=== PATIENT | female | born 1955 | race Caucasian/White ===

== ENCOUNTER 2016-06-14 06:55 | Day surgery (SDC) | payer BC ==
[~2016-06-14] VITALS: Ht 162.6 cm; Wt 98.0 kg
[~2016-06-14 06:55] MED LIST: ACET-2723 PO; AMLO10TA2 PO; AMLO5TAB2 PO; ASCO10007 PO; BISO1TAB10 PO; BUPR-51 PO; CHOL200026 PO; HYDR-4246 PO; LOSA100T44 PO; MELO15TA12 PO; ONDA4TAB4 PO; POTA10TA14 PO; UBID100C10 PO; VIT1CAPS21 PO; VITA1CAP64 PO
--- OUTSIDE RECORDS SUMMARY | 2016-06-14 06:58 | XMS REPORT | Referral Summary ---
Author Author [facility], Family Medicine Organization [facility] Address Unknown Phone Unavailable Care Team Providers Care Seed Buyer Name Role Phone Roxanna Monique Primary Care Physician [phone] Encounter [facility] Date(s): 06/20/14 - 06/20/14 [facility], [address] [place] [id number]- Discharge Disposition: 01-Home or Self Care Attending Physician: Jonathan Monique MD Admitting Physician: Jonathan Monique MD Vital Signs Most recent to 1 oldest [Reference Range]: Temperature Tympanic 36.5 degC [36.6-38.1 degC] *LOW* (06/20/14 2:30 PM) Peripheral Pulse 68 bpm Rate [60-100 bpm] (06/20/14 2:30 PM) Blood Pressure 150/92 mmHg [90-140/60-90 mmHg] *HI* (06/20/14 2:30 PM) Problem List Condition Effective Dates Status Health Status Informant Allergic Active rhinitis(Confirmed) Acute Active anxiety(Confirmed) Benign essential Active hypertension(Confirm ed) Cervical disc Active degeneration(Confirm ed) Cervical disc Active herniation(Confirmed ) Cervical Active radiculitis(Confirme d) Cervical spinal Active stenosis(Confirmed) Cervical Active spondylosis(Confirme d) Depression(Confirmed Active ) Hayfever(Confirmed) Active Hypertension(Confirm Active ed) Hypertriglyceridemia Active (Confirmed) Hypokalemia(Confirme Active d) Knee pain(Confirmed) Active Well adult Active exam(Confirmed) Multinodular Active thyroid(Confirmed) Neck pain(Confirmed) Active Obesity(Confirmed) Active Hip Active osteoarthritis(Confi rmed) Osteoarthritis of Active left knee(Confirmed) Overweight(Confirmed Active ) Left knee Active sprain(Confirmed) Sprain of medial Active collateral ligament of left knee(Confirmed) Left leg Active swelling(Confirmed) Heart murmur, Active systolic(Confirmed) Acute torn Active meniscus(Confirmed) Tenderness of left Active calf(Confirmed) Tobacco Active patient user(Confirmed) Tubular adenoma of 2012 Active colon(Confirmed) Uterine Active fibroids(Confirmed) Need for hepatitis A Active vaccination(Confirme d) Allergies, Adverse Reactions, Alerts No Known Medication Allergies Medications albuterol CFC free 90 mcg/inh inhalation aerosol 2 puffs, Inhalation, QID, as needed for wheezing, # 18 g, 1 Refill(s), Pharmacy : [id number] Start Date: 12/26/14 Status: Ordered amLODIPine 10 mg oral tablet 1 tabs, Oral, Daily, # 90 tabs, 3 Refill(s), Pharmacy: [id number], 1 tabs Oral Daily,x90 days Start Date: 06/20/14 Stop Date: 06/15/15 Status: Ordered amoxicillin-clavulanate 875 mg-125 mg oral tablet 1 tabs, Oral, q12hr, X 10 days, # 20 tabs, 0 Refill(s), Pharmacy: [id number] Start Date: 12/26/14 Stop Date: 01/05/15 Status: Ordered bisoprolol-hydrochlorothiazide 2.5 mg-6.25 mg oral tablet 2 tabs, Oral, Daily, # 180 tabs, 3 Refill(s), Pharmacy: [facility] [id number] Start Date: 06/20/14 Stop Date: 06/15/15 Status: Ordered Klor-Con 10 oral tablet, extended release 1 tabs, Oral, Daily, # 90 tabs, 3 Refill(s), Pharmacy: [facility] [id number], 1 tabs Oral Daily,x90 days Start Date: 06/20/14 Stop Date: 06/15/15 Status: Ordered losartan 100 mg oral tablet 1 tabs, Oral, Daily, X 90 days, # 90 tabs, 3 Refill(s), Pharmacy: [facility] [id number], 1 tabs Oral Daily,x90 days Start Date: 06/20/14 Stop Date: 06/15/15 Status: Ordered Ocuvite PreserVision 1 tabs, Oral, Daily, 0 Refill(s) Start Date: 08/03/14 Status: Ordered traMADol 50 mg oral tablet 25 mg 0.5 tabs, Oral, BID, for knee pain, 0 Refill(s) Start Date: 08/03/14 Status: Ordered Tussionex PennKinetic 10 mg-8 mg/5 mL oral suspension, extended release 5 mL, Oral, Bedtime (once a day), # 120 mL, 0 Refill(s) Start Date: 12/26/14 Stop Date: 01/14/15 Status: Ordered Tylenol Extra Strength 500 mg oral tablet 2 tabs, Oral, TID, as needed for pain, # 120 tabs, 0 Refill(s) Start Date: 02/17/14 Status: Ordered ubiquinone 200 mg oral capsule Oral, Daily, 0 Refill(s) Start Date: 05/20/14 Status: Ordered Unisom 25 mg oral tablet 0.5 tabs, Oral, Bedtime (once a day), as needed for sleep, 0 Refill(s) Start Date: 11/11/13 Status: Ordered Vitamin B Complex oral capsule 1 caps, Oral, Daily Start Date: 10/20/13 Status: Ordered Vitamin C 1000 mg oral tablet 1 tabs, Oral, Daily Start Date: 10/20/13 Status: Ordered Vitamin D3 1000 intl units oral tablet 2 tabs, Oral, Daily Start Date: 10/20/13 Status: Ordered Results No data available for this section Immunizations Vaccine Date Refusal Reason diphtheria/pertussis, acel/tetanus ped 08/30/11 diphtheria/pertussis, whole cell/tetanus 03/12/02 hepatitis A adult vaccine 08/03/14 hepatitis B adult vaccine 08/30/11 Procedures Procedure Date Related Diagnosis Body Site Arthroscopy and biopsy of knee1 07/11/14 Colonoscopy 05/01/11 c-scope 2011 [facility] BSO - Total abdominal hysterectomy and 09/2009 bilateral salpingo-oophorectomy Appendectomy 2009 Arthroscopy of RIGHT knee 07/2006 Cholecystectomy 2004 1left knee meiscectomy and debridement Social History Social History Type Response Smoking Status Former smoker; Type: Cigarettes1 1quit smoking in 1999 Assessment and Plan Extracted from: Title: Ambulatory Patient Education Author: Jonathan Monique MD Date: 06/20 Family Medicine Combined Knee Ligament Sprain Combined knee ligament sprain is a tear of more than one of the major ligaments of the knee. The four knee ligaments are the anterior cruciate ligament (ACL), posterior cruciate ligament (PCL), medial collateral ligament (MCL) and lateral collateral ligament (LCL). Ligaments connect bones. They often cross a joint to hold the bones together. The ligaments of the knee keep the thigh bone (femur ) and shinbone (tibia ) in alignment. These ligaments allow the joint to move within a certain range of motion. Movement outside this range causes a ligament strain. Injury to multiple ligaments at the same time results in difficulty playing sports and in daily living. The most common multiple knee ligament injury involves the ACL and MCL. SYMPTOMS A "popping" sound heard or felt at the time of injury. Inability to continue activity after injury. Inflammation of the knee within 6 hours after injury. Possibly, deformity of the knee. Inability to straighten the knee. Feeling of the knee giving way or buckling. Sometimes, locking of the knee, if the joint cartilage (meniscus ) is injured. Rarely, numbness, weakness, paralysis, discoloration, or coldness, due to nerve or blood vessel injury. CAUSES Spraining of multiple ligaments occurs when a force is placed on the ligaments that exceeds their strength. This is often caused by a direct hit (trauma ). It may also be caused by a non-contact injury (hyperextending the knee while twisting it). RISK INCREASES WITH: Contact sports (football, rugby, lacrosse). Sports that involve pivoting, jumping, cutting, or changing direction (basketball, gymnastics, soccer, volleyball). Sports on uneven ground (cross-country running, soccer). Poor strength and/or flexibility. Improper fitted or padded equipment. PREVENTION Warm up and stretch properly before activity. Maintain physical fitness: Thigh, leg, and knee flexibility. Muscle strength and endurance. Learn and use proper exercise technique. Wear proper and well fitting equipment (correct length of cleats for surface). PROGNOSIS Without treatment, the knee will continue to give way and become vulnerable to recurring injury. Recurring injury can happen during athletics or daily living. If the injury includes damage to a nerve or artery, the chance of a poor outcome increases. Surgery is often needed to regain stability of the knee. RELATED COMPLICATIONS Frequently recurring symptoms, including: Knee giving way. Joint instability. Inflammation. Injury to the joint cartilage (meniscus ). This may result in locking and/ or swelling of the knee. Injury to joint (articular ) cartilage of the thigh bone or shinbone. This may result in arthritis of the knee. Injury to other ligaments of the knee. Knee stiffness (loss of knee motion). Permanent injury to nerves (numbness, weakness, or paralysis) or arteries. Removal (amputation ) of the leg, due to nerve or artery injury. TREATMENT Treatment first involves medicine and ice, to reduce pain and inflammation. Crutches may be advised, to decrease pain while walking. The knee may be restrained. Rehabilitation focuses on reducing swelling, regaining range of motion, and regaining muscle control and strength. It may also include receiving proper use training, wearing a brace, and education. (Avoid sports that involve pivoting, cutting, changing direction, jumping and landing). Surgery often offers the best chance for full recovery. Surgery from combined ACL/MCL injury involves replacement (reconstruction ) of the ACL. This also allows for MCL healing. Despite surgery, some athletes may never return to their prior level of competition. The ability to return to sports depends on the related injuries and demands of the sport. MEDICATION If pain medicine is needed, nonsteroidal anti-inflammatory medicines ( aspirin and ibuprofen), or other minor pain relievers (acetaminophen), are often advised. Do not take pain medicine for 7 days before surgery. Stronger pain relievers may be prescribed. Use only as directed and only as much as you need. Contact your caregiver immediately if any bleeding, stomach upset, or signs of an allergic reaction occur. COLD THERAPY Cold treatment (icing ) should be applied for 10 to 15 minutes every 2 to 3 hours for inflammation and pain, and immediately after activity that aggravates your symptoms. Use ice packs or an ice massage. SEEK MEDICAL CARE IF: Symptoms get worse or do not improve in 6 weeks, despite treatment. After injury or surgery, any of the following occur: Pain, numbness, coldness, or a blue, torres, or dark color occurs in the foot or toenails. Increased pain, swelling, redness, drainage of fluids, or bleeding in the affected area. Signs of infection (headache, muscle aches, dizziness, or a general ill feeling with fever). New, unexplained symptoms develop. (Drugs used in treatment may produce side effects .) Document Released: 01/27/2006 Document Revised: 04/20/2012 Document Reviewed: [facility] Patient Information 2014 Campus Sponsorship [facility]. No follow up information was provided. Extracted from: Title: knee injury, hypertension Author: Jonathan Monique MD Date: 06/20/14 Impression and Plan Diagnosis Benign essential hypertension (ICD9 401.1, Working, Medical). Left knee sprain (ICD9 844.9, Working, Medical). Plan: Try to avoid ibuprofen, which is raising your BP. , Raise your Bisoprolol to 2 tabs daily, for better control of your BP. , Wear your brace with the metal stays when walking, in order to help prevent further injury to your medial collateral ligament., See me in 4-6 weeks for re-evaluation of your BP and physical. . Orders Orders (Selected) Outpatient Orders Ordered Office Visit Level 5 Est 32915: Discontinued Office Visit Level 4 Est 12005: Prescriptions Prescribed Klor-Con 10 oral tablet, extended release: 1 tabs, Oral, Daily, for 90 days, 90 tabs, 3 Refill(s) amLODIPine 10 mg oral tablet: 1 tabs, Oral, Daily, for 90 days, 90 tabs, 3 Refill(s) bisoprolol-hydrochlorothiazide 2.5 mg-6.25 mg oral tablet: 2 tabs, Oral, Daily, for 90 days, 180 tabs, 3 Refill(s) losartan 100 mg oral tablet: 1 tabs, Oral, Daily, for 90 days, 90 tabs, 3 Refill (s). Dx/Order Association Plan: Diagnosis: Benign essential hypertension Comment: Ordered: Office Visit Level 5 Est 75411; 06/20/14 17:00:00 CDT, Left knee sprain | Benign essential hypertension Discontinued: Office Visit Level 4 Est 18742; 06/20/14 15:15:00 CDT, Left knee sprain | Benign essential hypertension Diagnosis: Left knee sprain Comment: Ordered: Office Visit Level 5 Est 55715; 06/20/14 17:00:00 CDT, Left knee sprain | Benign essential hypertension Discontinued: Office Visit Level 4 Est 04812; 06/20/14 15:15:00 CDT, Left knee sprain | Benign essential hypertension Additional Orders: Comment: Ordered: Klor-Con 10 oral tablet, extended release,1 tabs, Oral, Daily, # 90 tabs, 3 Refill(s), Pharmacy: [facility] [id number], 1 tabs Oral Daily,x90 days Ordered: amLODIPine 10 mg oral tablet,1 tabs, Oral, Daily, # 90 tabs, 3 Refill(s), Pharmacy: [facility] [id number], 1 tabs Oral Daily,x90 days Ordered: bisoprolol-hydrochlorothiazide 2.5 mg-6.25 mg oral tablet, 2 tabs, Oral, Daily, # 180 tabs, 3 Refill(s), Pharmacy: [facility] [id number] Ordered: losartan 100 mg oral tablet,1 tabs, Oral, Daily, X 90 days , # 90 tabs, 3 Refill(s), Pharmacy: [facility] [id number], 1 tabs Oral Daily,x90 days End of Orders .
--- OUTSIDE RECORDS SUMMARY | 2016-06-14 06:58 | XMS REPORT | Continuity of Care Document ---
Author Author Jonathan Monique MD Organization [facility] Address [address] [place] [address] Phone Care Team Providers Care Terrazzo Journeyman Name Role Phone Jonathan Monique PP Unavailable Payers Payer name Insurance type Covered constitution party ID Authorization(s) Unknown Problems Condition Effective Dates (start - stop) Clinical Status Well adult exam - *Stable Hypertension - *Chronic Osteoarthritis, knee - *Chronic Thyroid nodule - *Chronic Renal insufficiency - *Acute Maxillary sinusitis - *Acute BPPV (benign paroxysmal positional vertigo) - *Acute Hypertension - *Chronic Thyroid nodule - *Acute Hypertension - *Chronic Osteoarthritis of right hip - Improved Hypertension, benign - *Chronic Plantar fasciitis of left foot - *Chronic Hypokalemia - *Acute Nontoxic uninodular goiter - *Chronic Hypertension, Benign - *Chronic PRSNL HST COLONIC POLYPS - UTERINE LEIOMYOMA NOS - OVERWEIGHT - BENIGN HYPERTENSION - ALLERGIC RHINITIS NOS - DYSPLASIA OF CERVIX NOS - CERVICAL SPONDYLOSIS - CERVICAL DISC DISPLACMNT - CERVICAL DISC DEGEN - CERVICAL SPINAL STENOSIS - CERVICALGIA - BRACHIAL NEURITIS NOS - ABN GLANDULAR PAP SMEAR - Family History Family Member Diagnosis Age At Onset Status Brother (Unknown) Alive and well (Unknown) Paternal grandfather (Unknown) CAD Yes Mother () Cancer - lung 75 Yes Sister (Unknown) Alive and well (Unknown) Father () Pulmonary fibrosis 78 Yes Paternal aunt (Alive) Cancer - breast Yes 2 paternal great unc (Unknown) Premature CAD Yes Father (Unknown) CAD Yes Maternal grandfather (Unknown) Cancer - colon Yes Brother (Unknown) CAD Yes Mother (Unknown) Diabetes Yes Social History Social History Element Description Quantity Unknown Allergies, Adverse Reactions, Alerts Substance Reaction Severity Status Unknown Medications Medication Instructions Dosage Effective Dates (start - stop) Status Cataflam 50 mg tablet take 1 tablet (50MG) by oral route 2 times every day 50 MG - No Longer Active estradiol 0.05 mg/24 hr weekly transdermal patch apply 1 patch by transdermal route every week 0 - No Longer Active ondansetron HCl 4 mg tablet take 1 Tablet (4MG) by oral route every 4 - 6 hours as needed for nausea 4 MG - Active estradiol 0.05 mg/24 hr semiweekly transdermal patch apply 1 patch by transdermal route every week 0 - Active gabapentin 600 mg tablet Take 0.5 - 1 tablets by mouth at bedtime. 2013 - No Longer Active losartan 100 mg-hydrochlorothiazide 25 mg tablet take 1 tablet by oral route every day 0 - No Longer Active amoxicillin 875 mg-potassium clavulanate 125 mg tablet take 1 tablet by oral route every 12 hours 0 - No Longer Active gabapentin 600 mg tablet Take 0.5 - 1 tablets by mouth at bedtime. 2013 - No Longer Active Vitamin C 1,000 mg tablet take 1 by Oral route every day 0 - Active Vitamin B Complex tablet take 1 Tablet by Oral route every day 0 2011 - Active Vitamin D3 1,000 unit capsule take 1 Tablet by Oral route every day 0 - Active losartan 100 mg tablet take 1 Tablet (100MG) by oral route every morning 100 MG - Active gabapentin 600 mg tablet Take 0.5 - 1 tablets by mouth as nneeded. 2013 - Active amlodipine 5 mg tablet take 1 tablet (5MG) by oral route every day 5 MG - Active Immunizations Vaccine Date Status Comments DTaP completed - Completed reason: other provider DTP completed - Completed reason: other provider Results Test Name Date and Time Measure Units Reference Range Abnormal Flag Comments Unknown Vital Signs Date / Time: Height Weight Pulse Rate Blood Pressure Temperature /07:35:00 64.25 in 204.00 lbs 64 /min 150/90 mm[Hg] 97.6 F Procedures Procedure Date Unknown Encounters Encounter Location Date Patient Visit [facility] Patient Visit [facility] Patient Visit [facility] Patient Visit [facility] Patient Visit [facility] Patient Visit [facility] Patient Visit [facility] Patient Visit [facility] Advance Directives Directive Effective Date Unknown
--- OUTSIDE RECORDS SUMMARY | 2016-06-14 06:59 | XMS REPORT | Continuity of Care Document ---
Author Author Maria Elena BREAUX, [facility] Address [address] [place] [address] Phone Care Team Providers Care Bushing And Broach Operator Name Role Phone Jonathan Monique PP Unavailable Payers Payer name Insurance type Covered libertarian ID Authorization(s) Unknown Problems Condition Effective Dates (start - stop) Clinical Status Bronchitis, Acute - *Acute Sinusitis, Acute - *Acute Hypertension, Benign - *Chronic Hot flashes due to surgical menopause - *Controlled BPPV (benign paroxysmal positional vertigo) - *Acute Hypertension - *Chronic Thyroid nodule - *Acute Hypertension - *Chronic Osteoarthritis of right hip - Improved Hypertension, benign - *Chronic Plantar fasciitis of left foot - *Chronic Hypokalemia - *Acute Thyroid nodule - *Chronic Hypertension, benign - *Chronic Osteoarthritis of both hips - *Chronic Nontoxic uninodular goiter - *Chronic Hypertension, Benign - *Chronic Well adult exam - *Stable Hypertension - *Chronic Osteoarthritis, knee - *Chronic Thyroid nodule - *Chronic Renal insufficiency - *Acute Maxillary sinusitis - *Acute PRSNL HST COLONIC POLYPS - UTERINE LEIOMYOMA [...] Dosage Effective Dates (start - stop) Status amlodipine 10 mg tablet take 1 tablet (10MG) by oral route every day 10 MG - Active estradiol 0.05 mg/24 hr weekly transdermal patch apply 1 patch by transdermal route every week - Active Diane 0.05 mg/24 hr transdermal patch apply 1 patch by transdermal route every week 0 - No Longer Active Tussionex Pennkinetic ER 8 mg-10 mg/5 mL suspension,extended release take 5 milliliter (1 tsp) by oral route at bedtime as needed for cough 2013 - No Longer Active albuterol sulfate HFA 90 mcg/actuation aerosol inhaler inhale 1-2 puffs by inhalation route every 4 - 6 hours as needed - No Longer Active Vitamin C 1,000 [...] by mouth as nneeded. 2013 - Active coenzyme Q10 50 mg capsule take one capsules daily - Active Immunizations Vaccine Date Status Comments DTaP completed - Completed reason: other provider DTP completed - Completed reason: other provider Results Test Name Date and Time Measure Units Reference Range Abnormal Flag Comments Unknown Vital Signs Date / Time: Height Weight Pulse Rate Blood Pressure Temperature /15:31:00 64.25 in 203.00 lbs 80 /min 160/98 mm[Hg] 98.8 F Procedures Procedure Date Unknown Encounters Encounter Location Date Patient Visit [facility] Patient Visit [facility] Patient Visit [facility] Patient Visit [facility] [place] Patient Visit [facility] [place] Patient Visit [facility] Patient Visit [facility] Patient Visit [facility] [place] Patient Visit [facility] [place] Patient Visit [facility] Advance Directives Directive Effective Date Unknown
--- OUTSIDE RECORDS SUMMARY | 2016-06-14 06:59 | XMS REPORT | Referral Summary ---
Author Author [facility], Family Medicine Organization [facility] Address Unknown Phone Unavailable Care Team Providers Care Area Mechanic Name Role Phone Roxanna Monique Primary Care Physician [phone] Encounter VC Date(s): 01/30/15 - 01/30/15 [facility], [address] [place] [id number]- Discharge Disposition: 01-Home or Self Care Attending Physician: Jonathan Monique MD Admitting Physician: Jonathan Monique MD Vital Signs Most recent to 1 oldest [Reference Range]: Temperature Tympanic 36.6 degC [36.6-38.1 degC] (01/30/15 10:09 AM) Peripheral Pulse 66 bpm Rate [60-100 bpm] (01/30/15 10:09 AM) Blood Pressure 126/80 mmHg [90-140/60-90 mmHg] (01/30/15 10:09 AM) SpO2 98 % (01/30/15 10:09 AM) Problem List Condition Effective Dates Status Health [...] # 18 g, 1 Refill(s), Pharmacy : [facility] [id number] Start Date: 12/26/14 Status: Ordered amLODIPine 10 mg oral tablet 1 tabs, Oral, Daily, # 90 tabs, 3 Refill(s), Pharmacy: [facility] [id number], 1 tabs Oral Daily,x90 days Start Date: 06/20/14 Stop Date: 06/15/15 Status: Ordered bisoprolol-hydrochlorothiazide 2.5 mg-6.25 mg oral tablet 2 tabs, Oral, Daily, # 180 tabs, 3 Refill(s), Pharmacy: [facility] Start Date: 01/30/15 Stop Date: 01/25/16 Status: Ordered Klor-Con 10 oral tablet, extended release 1 tabs, Oral, Daily, # 90 tabs, 3 Refill(s), Pharmacy: [facility] [id number], 1 tabs Oral Daily,x90 days Start Date: 06/20/14 Stop Date: 06/15/15 Status: Ordered losartan 100 mg oral tablet 1 tabs, Oral, Daily, X 90 days, # 90 tabs, 3 Refill(s), Pharmacy: [facility] [id number], 1 tabs Oral Daily,x90 days Start Date: 06/20/14 Stop Date: 06/15/15 Status: Ordered Applegate 7.5 mg-325 mg oral tablet 1 tabs, Oral, q6hr, as needed for pain, # 30 tabs, 0 Refill(s) Start Date: 01/30/15 Stop Date: 02/11/15 Status: Ordered Ocuvite PreserVision 1 tabs, Oral, Daily, 0 Refill(s) Start Date: 08/03/14 Status: Ordered traMADol 50 mg oral tablet 25 mg 0.5 tabs, Oral, BID, for knee pain, 0 Refill(s) Start Date: 08/03/14 Status: Ordered Tylenol Extra Strength 500 mg [...] whole cell/tetanus 03/12/02 hepatitis A adult vaccine 01/30/15 hepatitis A adult vaccine 08/03/14 hepatitis B adult vaccine 08/30/11 Procedures Procedure Date Related Diagnosis Body Site Arthroscopy and biopsy of knee1 07/11/14 Colonoscopy 05/01/11 c-scope 2011 [facility] BSO - Total abdominal hysterectomy and 09/2009 bilateral salpingo-oophorectomy Appendectomy 2009 Arthroscopy of RIGHT knee 07/2006 Cholecystectomy 2004 1left knee meiscectomy and debridement Social History Social History Type Response Smoking Status Former smoker; Type: Cigarettes1 1quit smoking in 1999 Assessment and Plan Extracted from: Title: Ambulatory Patient Education Author: Jonathan Monique MD Date: Family Medicine Osteoarthritis Osteoarthritis is a disease that causes soreness and inflammation of a joint. It occurs when the cartilage at the affected joint wears down. Cartilage acts as a cushion, covering the ends of bones where they meet to form a joint. Osteoarthritis is the most common form of arthritis. It often occurs in older people. The joints affected most often by this condition include those in the: Ends of the fingers. Thumbs. Neck. Lower back. Knees. Hips. CAUSES Over time, the cartilage that covers the ends of bones begins to wear away. This causes bone to rub on bone, producing pain and stiffness in the affected joints. RISK FACTORS Certain factors can increase your chances of having osteoarthritis, including: Older age. Excessive body weight. Overuse of joints. Previous joint injury. SIGNS AND SYMPTOMS Pain, swelling, and stiffness in the joint. Over time, the joint may lose its normal shape. Small deposits of bone (osteophytes) may grow on the edges of the joint. Bits of bone or cartilage can break off and float inside the joint space. This may cause more pain and damage. DIAGNOSIS Your health care provider will do a physical exam and ask about your symptoms. Various tests may be ordered, such as: X-rays of the affected joint. An MRI scan. Blood tests to rule out other types of arthritis. Joint fluid tests. This involves using a needle to draw fluid from the joint and examining the fluid under a microscope. TREATMENT Goals of treatment are to control pain and improve joint function. Treatment plans may include: A prescribed exercise program that allows for rest and joint relief. A weight control plan. Pain relief techniques, such as: Properly applied heat and cold. Electric pulses delivered to nerve endings under the skin (transcutaneous electrical nerve stimulation [TENS]). Massage. Certain nutritional supplements. Medicines to control pain, such as: Acetaminophen. Nonsteroidal anti-inflammatory drugs (NSAIDs), such as naproxen. Narcotic or central-acting agents, such as tramadol. Corticosteroids. These can be given orally or as an injection. Surgery to reposition the bones and relieve pain (osteotomy) or to remove loose pieces of bone and cartilage. Joint replacement may be needed in advanced states of osteoarthritis. HOME CARE INSTRUCTIONS Take medicines only as directed by your health care provider. Maintain a healthy weight. Follow your health care provider's instructions for weight control. This may include dietary instructions. Exercise as directed. Your health care provider can recommend specific types of exercise. These may include: Strengthening exercises. These are done to strengthen the muscles that support joints affected by arthritis. They can be performed with weights or with exercise bands to add resistance. Aerobic activities. These are exercises, such as brisk walking or low- impact aerobics, that get your heart pumping. Umpgd-gy-hkecyw activities. These keep your joints limber. Balance and agility exercises. These help you maintain daily living skills. Rest your affected joints as directed by your health care provider. Keep all follow-up visits as directed by your health care provider. SEEK MEDICAL CARE IF: Your skin turns red. You develop a rash in addition to your joint pain. You have worsening joint pain. You have a fever along with joint or muscle aches. SEEK IMMEDIATE MEDICAL CARE IF: You have a significant loss of weight or appetite. You have night sweats. FOR MORE INFORMATION [employer] [place] of Arthritis and Musculoskeletal and Skin Diseases: www.niams.nih.gov [employer] [place] on Aging: www.prashanth.nih.gov [employer] [place] [employer]: www.rheumatology.org Document Released: 01/27/2006 Document Revised: 06/13/2014 Document Reviewed: ExitCare Patient Information 2015 [employer]. This information is not intended to replace advice given to you by your health care provider. Make sure you discuss any questions you have with your health care provider. Musculoskeletal Heel Spur A heel spur is a hook of bone that can form on the calcaneus (the heel bone and the largest bone of the foot). Heel spurs are often associated with plantar fasciitis and usually come in people who have had the problem for an extended period of time. The cause of the relationship is unknown. The pain associated with them is thought to be caused by an inflammation (soreness and redness) of the plantar fascia rather than the spur itself. The plantar fascia is a thick fibrous like tissue that runs from the calcaneus (heel bone) to the ball of the foot. This strong, tight tissue helps maintain the arch of your foot. It helps distribute the weight across your foot as you walk or run. Stresses placed on the plantar fascia can be tremendous. When it is inflamed normal activities become painful. Pain is worse in the morning after sleeping. After sleeping the plantar fascia is tight. The first movements stretch the fascia and this causes pain. As the tendon loosens, the pain usually gets better. It often returns with too much standing or walking. About 70% of patients with plantar fasciitis have a heel spur. About half of people without foot pain also have heel spurs. DIAGNOSIS The diagnosis of a heel spur is made by X-ray. The X-ray shows a hook of bone protruding from the bottom of the calcaneus at the point where the plantar fascia is attached to the heel bone. TREATMENT It is necessary to find out what is causing the stretching of the plantar fascia. If the cause is over-pronation (flat feet), orthotics and proper foot garcia may help. Stretching exercises, losing weight, wearing shoes that have a cushioned heel that absorbs shock, and elevating the heel with the use of a heel cradle, heel cup, or orthotics may all help. Heel cradles and heel cups provide extra comfort and cushion to the heel, and reduce the amount of shock to the sore area. AVOIDING THE PAIN OF PLANTAR FASCIITIS AND HEEL SPURS Consult a sports medicine professional before beginning a new exercise program. Walking programs offer a good workout. There is a lower chance of overuse injuries common to the runners. There is less impact and less jarring of the joints. Begin all new exercise programs slowly. If problems or pains develop, decrease the amount of time or distance until you are at a comfortable level. Wear good shoes and replace them regularly. Stretch your foot and the heel cords at the back of the ankle (Achilles tendons) both before and after exercise. Run or exercise on even surfaces that are not hard. For example, asphalt is better than pavement. Do not run barefoot on hard surfaces. If using a treadmill, vary the incline. Do not continue to workout if you have foot or joint problems. Seek professional help if they do not improve. HOME CARE INSTRUCTIONS Avoid activities that cause you pain until you recover. Use ice or cold packs to the problem or painful areas after working out. Only take foww-jsi-dxdtmfz or prescription medicines for pain, discomfort, or fever as directed by your caregiver. Soft shoe inserts or athletic shoes with air or gel sole cushions may be helpful. If problems continue or become more severe, consult a sports medicine caregiver. Cortisone is a potent anti-inflammatory medication that may be injected into the painful area. You can discuss this treatment with your caregiver. MAKE SURE YOU: Understand these instructions. Will watch your condition. Will get help right away if you are not doing well or get worse. Document Released: 03/05/2006 Document Revised: 04/20/2012 Document Reviewed: ExitCare Patient Information 2015 [employer], [facility]. This information is not intended to replace advice given to you by your health care provider. Make sure you discuss any questions you have with your health care provider. No follow up information was provided. Extracted from: Title: plantar fasciitis, HTN Author: Jonathan Monique MD Date: 01/30/15 Impression and Plan Diagnosis Hypertension (WSU30-OY I10, Working, Medical). Cervical spinal stenosis (LFA90-QH M48.02, Working, Medical). Multinodular thyroid (SEF89-DW E04.2, Working, Medical). Hypertriglyceridemia (FOJ21-HP E78.1, Working, Medical). Need for hepatitis A immunization (JDB22-IC Z23, Working, Medical). Plan: 1) Hepatitis A #2 given today. 2) Continue your present meds. 3) Do frequent heel stretches, use ice massage, and always wear good arch supports. 4) Healthy diet diet and daily exercise helps most things. 5) See me in 6 months and as needed. 6) You may restart estrogen, if needed, due to hot flashes. 7) Get your mammograms in April.. Orders Orders (Selected) Outpatient Orders Ordered Office Visit Level 4 Est 57008: Completed hepatitis A adult vaccine 1440 units/mL preservative free intramuscular suspension: 1 mL, IntraMuscular, Once Prescriptions Prescribed Applegate 7.5 mg-325 mg oral tablet: 1 tabs, Oral, q6hr, PRN: as needed for pain, 30 tabs, 0 Refill(s) bisoprolol-hydrochlorothiazide 2.5 mg-6.25 mg oral tablet: 2 tabs, Oral, Daily, for 90 days, 180 tabs, 3 Refill(s). Dx/Order Association Plan: Diagnosis: Cervical spinal stenosis Comment: Diagnosis: Hot flash, menopausal Comment: Diagnosis: Hypertension Comment: Ordered: Office Visit Level 4 Est 06036; 01/30/15 10:38:00 ECHOCARDIOGRAPH TECH, Hypertension | Hypertriglyceridemia | Osteoarthritis of both knees | Plantar fasciitis, left Diagnosis: Hypertriglyceridemia Comment: Ordered: Office Visit Level 4 Est 40710; 01/30/15 10:38:00 ECHOCARDIOGRAPH TECH, Hypertension | Hypertriglyceridemia | Osteoarthritis of both knees | Plantar fasciitis, left Diagnosis: Multinodular thyroid Comment: Diagnosis: Need for hepatitis A immunization Comment: Diagnosis: Osteoarthritis of both knees Comment: Ordered: Office Visit Level 4 Est 29027; 01/30/15 10:38:00 ECHOCARDIOGRAPH TECH, Hypertension | Hypertriglyceridemia | Osteoarthritis of both knees | Plantar fasciitis, left Diagnosis: Plantar fasciitis, left Comment: Ordered: Office Visit Level 4 Est 48320; 01/30/15 10:38:00 ECHOCARDIOGRAPH TECH, Hypertension | Hypertriglyceridemia | Osteoarthritis of both knees | Plantar fasciitis, left Additional Orders: Comment: Ordered: Applegate 7.5 mg-325 mg oral tablet,1 tabs, Oral, q6hr, as needed for pain, # 30 tabs, 0 Refill(s) Ordered: bisoprolol-hydrochlorothiazide 2.5 mg-6.25 mg oral tablet, 2 tabs, Oral, Daily, # 180 tabs, 3 Refill(s), Pharmacy: [facility] [id number] End of Orders ."
--- OUTSIDE RECORDS SUMMARY | 2016-06-14 06:59 | XMS REPORT | Referral Summary ---
Author Author [facility], Family Medicine Organization [facility] Address Unknown Phone Unavailable Care Team Providers Care Electrical Checkout Mechanic Name Role Phone Roxanna Monique Primary Care Physician [phone] Encounter VC Date(s): 09/19/15 - 09/19/15 [facility], [address] [place] [id number] Discharge Disposition: 01-Home or Self Care Attending Physician: Jonathan Monique MD Admitting Physician: Jonathan Monique MD Vital Signs Most recent to 1 oldest [Reference Range]: Temperature Tympanic 36.7 degC [36.6-38.1 degC] (09/19/15 9:38 AM) Peripheral Pulse 76 bpm Rate [60-100 bpm] (09/19/15 9:38 AM) Respiratory Rate 18 br/min [14-20 br/min] (09/19/15 9:38 AM) Blood Pressure 136/80 mmHg [90-140/60-90 mmHg] (09/19/15 9:38 AM) Problem List Condition Effective Dates Status [...] # 18 g, 1 Refill(s), Pharmacy : [facility] [id number] Start Date: 12/26/14 Status: Ordered bisoprolol-hydrochlorothiazide 2.5 mg-6.25 mg oral tablet 1 tabs, Oral, Daily, # 90 tabs, 3 Refill(s), Pharmacy: [facility] [id number] Start Date: 01/30/15 Stop Date: 01/25/16 Status: Ordered buPROPion 150 mg/12 hours (SR) oral tablet, extended release 150 mg 1 tabs, Oral, BID, # 180 tabs, 3 Refill(s), Pharmacy: [facility] [id number], 1 tabs Oral BID,x90 days Start Date: 09/19/15 Stop Date: 09/13/16 Status: Ordered Estradiol Patch 0.0375 mg/24 hours weekly transdermal film, extended release See Instructions, APPLY ONE PATCH TOPICALLY EVERY 7 DAYS, # 12 patches, 3 Refill (s), Pharmacy: [facility] [id number] Start Date: 08/03/15 Status: Ordered losartan 100 mg oral tablet See Instructions, TAKE 1 TABLET BY MOUTH DAILY, # 90 tabs, 3 Refill(s), Pharmacy : [facility] [id number], TAKE 1 TABLET BY MOUTH DAILY Start Date: 08/03/15 Status: Ordered Ocuvite PreserVision 1 tabs, Oral, Daily, 0 Refill(s) Start Date: 08/03/14 Status: Ordered potassium chloride 10 mEq oral tablet, extended release See Instructions, TAKE 1 TABLET BY MOUTH DAILY, # 90 tabs, 3 Refill(s), Pharmacy : [facility] [id number], TAKE 1 TABLET BY MOUTH DAILY Start Date: 08/03/15 Status: Ordered Tylenol Extra Strength 500 mg oral tablet 500 mg 1 tabs, Oral, TID, as needed for pain, [...] of knee1 07/11/14 Colonoscopy 05/01/11 c-scope 2011 [facility]SO - Total abdominal hysterectomy and 09/2009 bilateral salpingo-oophorectomy Appendectomy 2009 Arthroscopy of RIGHT knee 07/2006 Cholecystectomy 2004 1left knee meiscectomy and debridement Social History Social History Type Response Smoking Status Former smoker; Type: Cigarettes1 1quit smoking in 1999 Assessment and Plan Extracted from: Title: Ambulatory Patient Education Author: Jonathan Monique MD Date: Nutrition Fatty Liver Fatty liver, also called hepatic steatosis or steatohepatitis, is a condition in which too much fat has built up in your liver cells. The liver removes harmful substances from your bloodstream. It produces fluids your body needs. It also helps your body use and store energy from the food you eat. In many cases, fatty liver does not cause symptoms or problems. It is often diagnosed when tests are being done for other reasons. However, over time, fatty liver can cause inflammation that may lead to more serious liver problems , such as scarring of the liver (cirrhosis). CAUSES Causes of fatty liver may include: Drinking too much alcohol. Poor nutrition. Obesity. Sieper syndrome. Diabetes. Hyperlipidemia. . Certain drugs. Poisons. Some viral infections. RISK FACTORS You may be more likely to develop fatty liver if you: Abuse alcohol. Are . Are overweight. Have diabetes. Have hepatitis. Have a high triglyceride level. SIGNS AND SYMPTOMS Fatty liver often does not cause any symptoms. In cases where symptoms develop, they can include: Fatigue. Weakness. Weight loss. Confusion. Abdominal pain. Yellowing of your skin and the white parts of your eyes (jaundice). Nausea and vomiting. DIAGNOSIS Fatty liver may be diagnosed by: Physical exam and medical history. Blood tests. Imaging tests, such as an ultrasound, CT scan, or MRI. Liver biopsy. A small sample of liver tissue is removed using a needle. The sample is then looked at under a microscope. TREATMENT Fatty liver is often caused by other health conditions. Treatment for fatty liver may involve medicines and lifestyle changes to manage conditions such as: Alcoholism. High cholesterol. Diabetes. Being overweight or obese. HOME CARE INSTRUCTIONS Eat a healthy diet as directed by your health care provider. Exercise regularly. This can help you lose weight and control your cholesterol and diabetes. Talk to your health care provider about an exercise plan and which activities are best for you. Do not drink alcohol. Take medicines only as directed by your health care provider. SEEK MEDICAL CARE IF: You have difficulty controlling your: Blood sugar. Cholesterol. Alcohol consumption. SEEK IMMEDIATE MEDICAL CARE IF: You have abdominal pain. You have jaundice. You have nausea and vomiting. This information is not intended to replace advice given to you by your health care provider. Make sure you discuss any questions you have with your health care provider. Document Released: 03/14/2006 Document Revised: 02/17/2015 Document Reviewed: ExitCare Patient Information 2016 [employer] [facility]. No follow up information was provided. Extracted from: Title: HTN, fatty liver, and other Author: Jonathan Monique MD Date: problems Impression and Plan Diagnosis Fatty liver (LJC37-HW K76.0, Working, Medical). Hypertension (SQH04-IX I10, Working, Medical). Hypertriglyceridemia (XAV10-RE E78.1, Working, Medical). Mild major depression (JIO43-KQ F32.0, Working, Medical). Cervical spinal stenosis (ELZ95-VO M48.02, Working, Medical). Obesity (YYZ02-MW E66.9, Working, Medical). Plan: 1) Continue your current meds. 2) Healthy diet and daily exercise discussed. 3) See me in 6 months and as needed.. Orders Orders (Selected) Outpatient Orders Ordered Office Visit Level 4 Est 42943: Prescriptions Prescribed buPROPion 150 mg/12 hours (SR) oral tablet, extended release: 150 mg=1 tabs, Oral, BID, for 90 days, 180 tabs, 3 Refill(s). Dx/Order Association Plan: Diagnosis: Cervical spinal stenosis Comment: Ordered: Office Visit Level 4 Est 14942; 09/19/15 18:15:00 CDT, Hypertension | Mild major depression | Fatty liver | Hypertriglyceridemia | Cervical spinal stenosis | Obesity Diagnosis: Fatty liver Comment: Ordered: Office Visit Level 4 Est 71379; 09/19/15 18:15:00 CDT, Hypertension | Mild major depression | Fatty liver | Hypertriglyceridemia | Cervical spinal stenosis | Obesity Diagnosis: Hypertension Comment: Ordered: Office Visit Level 4 Est 85095; 09/19/15 18:15:00 CDT, Hypertension | Mild major depression | Fatty liver | Hypertriglyceridemia | Cervical spinal stenosis | Obesity Diagnosis: Hypertriglyceridemia Comment: Ordered: Office Visit Level 4 Est 26491; 09/19/15 18:15:00 CDT, Hypertension | Mild major depression | Fatty liver | Hypertriglyceridemia | Cervical spinal stenosis | Obesity Diagnosis: Mild major depression Comment: Ordered: Office Visit Level 4 Est 75193; 09/19/15 18:15:00 CDT, Hypertension | Mild major depression | Fatty liver | Hypertriglyceridemia | Cervical spinal stenosis | Obesity Diagnosis: Obesity Comment: Ordered: Office Visit Level 4 Est 01945; 09/19/15 18:15:00 CDT, Hypertension | Mild major depression | Fatty liver | Hypertriglyceridemia | Cervical spinal stenosis | Obesity Additional Orders: Comment: Ordered: buPROPion 150 mg/12 hours (SR) oral tablet, extended release,150 mg 1 tabs, Oral, BID, # 180 tabs, 3 Refill(s), Pharmacy: [facility] [id number], 1 tabs Oral BID,x90 days End of Orders ."
--- OUTSIDE RECORDS SUMMARY | 2016-06-14 06:59 | XMS REPORT | Referral Summary ---
Author Author [facility], Family Medicine Organization [facility] Address Unknown Phone Unavailable Care Team Providers Care Garbage Pick Up Worker Name Role Phone Roxanna Monique Primary Care Physician [phone] Encounter VC Date(s): 12/26/14 - 12/26/14 [facility], [address] [place] [phone]- Discharge Disposition: 01-Home or Self Care Attending Physician: Jonathan Monique MD Admitting Physician: Jonathan Monique MD Vital Signs Most recent to 1 oldest [Reference Range]: Temperature Tympanic 37.1 degC [36.6-38.1 degC] (12/26/14 2:16 PM) Apical Heart Rate 68 bpm [60-100 bpm] (12/26/14 2:16 PM) Blood Pressure 132/76 mmHg [90-140/60-90 mmHg] (12/26/14 2:16 PM) SpO2 97 % (12/26/14 2:16 PM) Problem List Condition Effective Dates Status [...] # 18 g, 1 Refill(s), Pharmacy : [id number] Start Date: 12/26/14 Status: Ordered amLODIPine 10 mg oral tablet 1 tabs, Oral, Daily, # 90 tabs, 3 Refill(s), Pharmacy: [id number], 1 tabs Oral Daily,x90 days Start Date: 06/20/14 Stop Date: 06/15/15 Status: Ordered amoxicillin-clavulanate 875 mg-125 mg oral tablet 1 tabs, Oral, q12hr, X 10 days, # 20 tabs, 0 Refill(s), Pharmacy: [id number] Start Date: 12/26/14 Stop Date: 01/05/15 Status: Ordered bisoprolol-hydrochlorothiazide 2.5 mg-6.25 mg oral tablet 2 tabs, Oral, Daily, # 180 tabs, 3 Refill(s), Pharmacy: [id number] Start Date: 06/20/14 Stop Date: 06/15/15 Status: Ordered Klor-Con 10 oral tablet, extended release 1 tabs, Oral, Daily, # 90 tabs, 3 Refill(s), Pharmacy: [id number], 1 tabs Oral Daily,x90 days Start Date: 06/20/14 Stop Date: 06/15/15 Status: Ordered losartan 100 mg oral tablet 1 tabs, Oral, Daily, X 90 days, # 90 tabs, 3 Refill(s), Pharmacy: [id number], 1 tabs Oral Daily,x90 days Start Date: [...] of knee1 07/11/14 Colonoscopy 05/01/11 c-scope 2011 [facility] BSO - Total abdominal hysterectomy and 09/2009 bilateral salpingo-oophorectomy Appendectomy 2009 Arthroscopy of RIGHT knee 07/2006 Cholecystectomy 2005 1left knee meiscectomy and debridement Social History Social History Type Response Smoking Status Former smoker; Type: Cigarettes1 1quit smoking in 1999 Assessment and Plan Extracted from: Title: Ambulatory Patient Education Author: Jonathan Monique MD Date: Family Medicine Acute Bronchitis Bronchitis is inflammation of the airways that extend from the windpipe into the lungs (bronchi). The inflammation often causes mucus to develop. This leads to a cough, which is the most common symptom of bronchitis. In acute bronchitis, the condition usually develops suddenly and goes away over time, usually in a couple weeks. Smoking, allergies, and asthma can make bronchitis worse. Repeated episodes of bronchitis may cause further lung problems. CAUSES Acute bronchitis is most often caused by the same virus that causes a cold. The virus can spread from person to person (contagious) through coughing, sneezing, and touching contaminated objects. SIGNS AND SYMPTOMS Cough. Fever. Coughing up mucus. Body aches. Chest congestion. Chills. Shortness of breath. Sore throat. DIAGNOSIS Acute bronchitis is usually diagnosed through a physical exam. Your health care provider will also ask you questions about your medical history. Tests, such as chest X-rays, are sometimes done to rule out other conditions. TREATMENT Acute bronchitis usually goes away in a couple weeks. Oftentimes, no medical treatment is necessary. Medicines are sometimes given for relief of fever or cough. Antibiotic medicines are usually not needed but may be prescribed in certain situations. In some cases, an inhaler may be recommended to help reduce shortness of breath and control the cough. A cool mist vaporizer may also be used to help thin bronchial secretions and make it easier to clear the chest. HOME CARE INSTRUCTIONS Get plenty of rest. Drink enough fluids to keep your urine clear or pale yellow (unless you have a medical condition that requires fluid restriction). Increasing fluids may help thin your respiratory secretions (sputum) and reduce chest congestion, and it will prevent dehydration. Take medicines only as directed by your health care provider. If you were prescribed an antibiotic medicine, finish it all even if you start to feel better. Avoid smoking and secondhand smoke. Exposure to cigarette smoke or irritating chemicals will make bronchitis worse. If you are a smoker, consider using nicotine gum or skin patches to help control withdrawal symptoms. Quitting smoking will help your lungs heal faster. Reduce the chances of another bout of acute bronchitis by washing your hands frequently, avoiding people with cold symptoms, and trying not to touch your hands to your mouth, nose, or eyes. Keep all follow-up visits as directed by your health care provider. SEEK MEDICAL CARE IF: Your symptoms do not improve after 1 week of treatment. SEEK IMMEDIATE MEDICAL CARE IF: You develop an increased fever or chills. You have chest pain. You have severe shortness of breath. You have bloody sputum. You develop dehydration. You faint or repeatedly feel like you are going to pass out. You develop repeated vomiting. You develop a severe headache. MAKE SURE YOU: Understand these instructions. Will watch your condition. Will get help right away if you are not doing well or get worse. Document Released: 03/06/2005 Document Revised: 06/13/2014 Document Reviewed: [facility] Patient Information 2015 [employer]. This information is not intended to replace advice given to you by your health care provider. Make sure you discuss any questions you have with your health care provider. Chronic Obstructive Pulmonary Disease Exacerbation Chronic obstructive pulmonary disease (COPD) is a common lung problem. In COPD, the flow of air from the lungs is limited. COPD exacerbations are times that breathing gets worse and you need extra treatment. Without treatment they can be life threatening. If they happen often, your lungs can become more damaged. HOME CARE Do not smoke. Avoid tobacco smoke and other things that bother your lungs. If given, take your antibiotic medicine as told. Finish the medicine even if you start to feel better. Only take medicines as told by your doctor. Drink enough fluids to keep your pee (urine) clear or pale yellow (unless your doctor has told you not to). Use a cool mist machine (vaporizer). If you use oxygen or a machine that turns liquid medicine into a mist ( nebulizer), continue to use them as told. Keep up with shots (vaccinations) as told by your doctor. Exercise regularly. Eat healthy foods. Keep all doctor visits as told. GET HELP RIGHT AWAY IF: You are very short of breath and it gets worse. You have trouble talking. You have bad chest pain. You have blood in your spit (sputum). You have a fever. You keep throwing up (vomiting). You feel weak, or you pass out (faint). You feel confused. You keep getting worse. MAKE SURE YOU: Understand these instructions. Will watch your condition. Will get help right away if you are not doing well or get worse. Document Released: 01/16/2012 Document Revised: 11/17/2013 Document Reviewed: [employer] Patient Information 2015 [employer]. This information is not intended to replace advice given to you by your health care provider. Make sure you discuss any questions you have with your health care provider. No follow up information was provided. Extracted from: Title: Maxillary sinusitis, Acute Author: Jonathan Monique MD Date: bronchitis, COPD exacerbation Impression and Plan Diagnosis Acute maxillary sinusitis (PTF48-MG J01.00, Working, Medical). Acute bronchitis (YYW12-LK J20.9, Working, Medical). COPD exacerbation (IIN76-YJ J44.1, Working, Medical). Plan: 1) Take the Augmentin and use the Albuterol inhaler as needed. 2) Rest and get enough sleep. 3) Followup as needed.. Orders Orders (Selected) Outpatient Orders Order Office Visit Level 4 Est 05256: Prescriptions Prescribed Tussionex [employer] 10 mg-8 mg/5 mL oral suspension, extended release: 5 mL, Oral, Bedtime (once a day), 120 mL, 0 Refill(s) albuterol CFC free 90 mcg/inh inhalation aerosol: 2 puffs, Inhalation, QID, PRN : as needed for wheezing, 18 g, 1 Refill(s) amoxicillin-clavulanate 875 mg-125 mg oral tablet: 1 tabs, Oral, q12hr, for 10 days, 20 tabs, 0 Refill(s). 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, Acute bronchitis | Acute maxillary sinusitis | COPD exacerbation Diagnosis: Acute maxillary sinusitis Comment: Ordered: Office Visit Level 4 Est 82127; 12/26/14 17:18:00 SUPERVISING [employer], Acute bronchitis | Acute maxillary sinusitis | COPD exacerbation Diagnosis: COPD exacerbation Comment: Ordered: Office Visit Level 4 Est 68638; 12/26/14 17:18:00 SUPERVISING [employer]OR [employer] REEL, Acute bronchitis | Acute maxillary sinusitis | COPD exacerbation Additional Orders: Comment: Ordered: Tussionex [employer] 10 mg-8 mg/5 mL oral suspension, extended release,5 mL, Oral, Bedtime (once a day), # 120 mL, 0 Refill(s) Ordered: albuterol CFC free 90 mcg/inh inhalation aerosol,2 puffs, Inhalation, QID, as needed for wheezing, # 18 g, 1 Refill(s), Pharmacy: [id number] Ordered: amoxicillin-clavulanate 875 mg-125 mg oral tablet,1 tabs, Oral, q12hr, X 10 days, # 20 tabs, 0 Refill(s), Pharmacy: [facility] End of Orders ."
--- OUTSIDE RECORDS SUMMARY | 2016-06-14 06:59 | XMS REPORT | Continuity of Care Document ---
Author Author [facility] BREAUX, [facility] Address [address] [place] [address] Phone Care Team Providers Care Petrographer Name Role Phone Jonathan Monique PP Unavailable Payers Payer name Insurance type Covered green party ID Authorization(s) Unknown Problems Condition Effective Dates (start - stop) Clinical Status Osteoarthritis of right hip - Improved Hypertension, benign - *Chronic Plantar fasciitis of left foot - *Chronic Hypokalemia - *Acute BPPV (benign paroxysmal positional vertigo) - *Acute Hypertension - *Chronic Thyroid nodule - *Acute Hypertension - *Chronic Bronchitis, Acute - *Acute Sinusitis, Acute - *Acute Hypertension, Benign - *Chronic 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 2013 - Active amlodipine 5 mg tablet take 1 tablet (5MG) by oral route every day 5 MG - No Longer Active Vitamin C 1,000 [...] route every morning 100 MG - Active amlodipine 10 mg tablet take 1 tablet (10MG) by oral route every day 10 MG - Active estradiol 0.05 mg/24 hr weekly transdermal patch apply 1 patch by transdermal route every week - Active coenzyme Q10 50 mg capsule take one capsules daily - Active Immunizations Vaccine Date Status Comments DTaP completed - Completed reason: other provider DTP completed - Completed reason: other provider Results Test Name Date and Time Measure Units Reference Range Abnormal Flag Comments Unknown Vital Signs Date / Time: Height Weight Pulse Rate Blood Pressure Temperature /08:39:00 64.25 in 201.00 lbs 84 /min 162/92 mm[Hg] 97.6 F Feb-20-2014/08:54:00 150/80 mm[Hg] Procedures Procedure Date Unknown Encounters Encounter Location Date Patient Visit [facility] Patient Visit [facility] Patient Visit [facility] Patient Visit [facility] Patient Visit [facility] Patient Visit [facility] Patient Visit [facility] Patient Visit [facility] Patient Visit [facility] Patient Visit [facility] Advance Directives Directive Effective Date Unknown
--- OUTSIDE RECORDS SUMMARY | 2016-06-14 06:59 | XMS REPORT | Referral Summary ---
Author Author [facility], Family Medicine Organization [facility] Address Unknown Phone Unavailable Care Team Providers Care Platform Beater Name Role Phone Roxanna Monique Primary Care Physician [phone] Encounter Date(s): 02/20/16 - 02/20/16 [facility], [address] [place] [phone]- Discharge Diagnosis: Fatty liver Discharge Diagnosis: Tubular adenoma of colon Discharge Diagnosis: Mild major depression Discharge Diagnosis: Hypertriglyceridemia Discharge Diagnosis: Hypertension Discharge Diagnosis: Nontoxic multinodular goiter Discharge Diagnosis: Osteoarthritis of both knees Discharge Disposition: 01-Home or Self Care Attending Physician: Jonathan Monique MD Admitting Physician: Jonathan Monique MD Vital Signs Most recent to 1 oldest [Reference Range]: Temperature Tympanic 36.7 degC [36.6-38.1 degC] (02/20/16 10:03 AM) Peripheral Pulse 68 bpm Rate [60-100 bpm] (02/20/16 10:03 AM) Blood Pressure 136/80 mmHg [90-140/60-90 mmHg] (02/20/16 10:03 AM) Problem List Condition Effective Dates Status [...] d) Allergies, Adverse Reactions, Alerts No Known Allergies Medications albuterol CFC free 90 mcg/inh inhalation aerosol 2 puffs, Inhalation, QID, as needed for wheezing, # 18 g, 1 Refill(s), Pharmacy : [facility] [id number] Start Date: 12/26/14 Status: Ordered amLODIPine 5 mg oral tablet 5 mg 1 tabs, Oral, Daily, 0 Refill(s) Start Date: 02/20/16 Status: Ordered bisoprolol-hydrochlorothiazide 2.5 mg-6.25 mg oral tablet 1 tabs, Oral, Daily, # 90 tabs, 3 Refill(s), Pharmacy: [id number] Start Date: 01/30/15 Stop Date: 01/25/16 Status: Ordered buPROPion 150 mg/12 hours (SR) oral tablet, extended release 150 mg 1 tabs, Oral, BID, # 180 tabs, 3 Refill(s), Pharmacy: [facility] [id number], 1 tabs Oral BID,x90 days Start Date: 09/19/15 Stop Date: 09/13/16 Status: Ordered Estradiol Patch 0.0375 mg/24 hours weekly transdermal film, extended release See Instructions, APPLY ONE PATCH TOPICALLY EVERY 7 DAYS, # 12 patches, 3 Refill (s), Pharmacy: [facility] [id number] Start Date: 08/03/15 Status: Ordered Klor-Con 10 mEq oral tablet, extended release See Instructions, TAKE 1 TABLET BY MOUTH DAILY, # 90 tabs, 2 Refill(s), [facility]Rx: [facility] [id number], TAKE 1 TABLET BY MOUTH DAILY Start Date: 10/10/15 Status: Ordered losartan 100 mg oral tablet See Instructions, TAKE 1 TABLET BY MOUTH DAILY, # 90 tabs, 3 Refill(s), Pharmacy : [facility] [id number], TAKE 1 TABLET BY MOUTH DAILY Start Date: 08/03/15 Status: Ordered Gibson 5 mg-325 mg oral tablet 1 tabs, Oral, Daily, as needed for severe pain, # 20 tabs, 0 Refill(s) Start Date: 02/20/16 Stop Date: 03/08/16 Status: Ordered Ocuvite PreserVision 1 tabs, Oral, [...] Daily Start Date: 10/20/13 Status: Ordered Results Chemistry Most recent to 1 oldest [Reference Range]: Sodium Lvl [135-144 141 mEq/L mEq/L] (02/20/16 10:51 AM) Potassium Lvl 4.1 mEq/L [3.5-5.2 mEq/L] (02/20/16 10:51 AM) Chloride [99-111 104 mEq/L mEq/L] (02/20/16 10:51 AM) CO2 [22-31 mEq/L] 27 mEq/L (02/20/16 10:51 AM) AGAP [3-20] 10 (02/20/16 10:51 AM) BUN [10-20 mg/dL] 17 mg/dL (02/20/16 10:51 AM) Glucose Lvl [70-99 106 mg/dL mg/dL] *HI* (02/20/16 10:51 AM) Creatinine Lvl 0.88 mg/dL [0.57-1.11 mg/dL] (02/20/16 10:51 AM) eGFR [>60 mL/min] >60 mL/min 1 (02/20/16 10:51 AM) Calcium Lvl 9.4 mg/dL [8.9-10.5 mg/dL] (02/20/16 10:51 AM) Albumin Lvl [3.5-5.0 4.3 gm/dL gm/dL] (02/20/16 10:51 AM) Total Protein 6.8 gm/dL [6.0-7.6 gm/dL] (02/20/16 10:51 AM) Globulin [1.8-4.0 2.5 gm/dL gm/dL] (02/20/16 10:51 AM) ALT [0-55 U/L] 28 U/L (02/20/16 10:51 AM) AST [5-34 U/L] 20 U/L (02/20/16 10:51 AM) Alk Phos [40-150 79 U/L U/L] (02/20/16 10:51 AM) Bili Total [0.2-1.2 0.5 mg/dL mg/dL] (02/20/16 10:51 AM) TSH [0.35-4.94] 1.19 (02/20/16 10:51 AM) 1Result Comment: Multiply eGFR results by 1.21 for race. Immunizations Given and Recorded Vaccine Date Status Refusal Reason diphtheria/pertussis, acel/tetanus ped 08/30/11 Given diphtheria/pertussis, whole cell/tetanus 03/12/02 Recorded hepatitis A adult vaccine 01/30/15 Given hepatitis A adult vaccine 08/03/14 Given hepatitis B adult vaccine 08/30/11 Recorded Procedures Procedure Date Related Diagnosis Body Site Collection of venous blood by venipuncture 02/20/16 Arthroscopy and biopsy of knee1 07/11/14 Colonoscopy 05/01/11 c-scope 2011 [facility] BSO - Total abdominal hysterectomy and 09/2009 bilateral salpingo-oophorectomy Appendectomy 2009 Arthroscopy of RIGHT knee 07/2006 Cholecystectomy 2004 1left knee meiscectomy and debridement Social History Social History Type Response Smoking Status Former smoker; Type: Cigarettes1 1quit smoking in 1999 Assessment and Plan Extracted from: Title: Ambulatory Patient Education Author: Jonathan Monique MD Date: 02/19 Nutrition Fatty Liver Fatty liver, also called [...] Drinking too much alcohol. Poor nutrition. Obesity. Korina syndrome. Diabetes. Hyperlipidemia. . Certain drugs. Poisons. [...] Released: 03/14/2006 Document Revised: 02/17/2015 Document Reviewed: [employer] Interactive Patient Education 2016 [employer] No follow up information was provided. Extracted from: Title: several problems Author: Jonathan Monique MD Date: 02/20/16 Impression and Plan Diagnosis Hypertension (KHF35-ZY I10, Discharge, Medical). Osteoarthritis of both knees (HAA86-DQ M17.0, Discharge, Medical). Hypertriglyceridemia (CMN72-UN E78.1, Discharge, Medical). Mild major depression (NGX30-GQ F32.0, Discharge, Medical). Nontoxic multinodular goiter (ATE35-YI E04.2, Discharge, Medical). Fatty liver (LOH36-RZ K76.0, Discharge, Medical). Tubular adenoma of colon (KYE27-OB D12.6, Discharge, Medical). Plan: 1) May have Gibson for rare use, for knee pain, since you are going to [place]. I am not willing to continue this narcotic routinely. 2) Healthy diet and daily exercise is very important for multiple reasons. 3) Lab ordered. 4) Continue your routine meds otherwise. 5) See me for a physical in 6 months and as needed. 6) Get a colonoscopy this spring, as it will be 5 years (due to tubular adenoma in 2011).. Orders Orders (Selected) Outpatient Orders Ordered CMP: Office Visit Level 4 Est 98544: TSH 3rd Generation: Prescriptions Prescribed Gibson 5 mg-325 mg oral tablet: 1 tabs, Oral, Daily, PRN: as needed for severe pain, 20 tabs, 0 Refill(s). Dx/Order Association Plan: Diagnosis: Fatty liver Comment: Ordered: CMP; Blood, Routine Collect, 02/20/16 10:46:00 PODIATRIC ASSISTANT, Once , Stop date 02/20/16 10:46:00 PODIATRIC ASSISTANT, Lab Collect, Hypertension | Fatty liver | Hypertriglyceridemia Office Visit Level 4 Est 83054; 02/20/16 10:36:00 PODIATRIC ASSISTANT, Hypertension | Osteoarthritis of both knees | Fatty liver | Nontoxic multinodular goiter | Mild major depression | Tubular adenoma of colon Diagnosis: Hypertension Comment: Ordered: CMP; Blood, Routine Collect, 02/20/16 10:46:00 PODIATRIC ASSISTANT, Once , Stop date 02/20/16 10:46:00 PODIATRIC ASSISTANT, Lab Collect, Hypertension | Fatty liver | Hypertriglyceridemia Office Visit Level 4 Est 54651; 02/20/16 10:36:00 PODIATRIC ASSISTANT, Hypertension | Osteoarthritis of both knees | Fatty liver | Nontoxic multinodular goiter | Mild major depression | Tubular adenoma of colon Diagnosis: Hypertriglyceridemia Comment: Ordered: CMP; Blood, Routine Collect, 02/20/16 10:46:00 PODIATRIC ASSISTANT, Once , Stop date 02/20/16 10:46:00 PODIATRIC ASSISTANT, Lab Collect, Hypertension | Fatty liver | Hypertriglyceridemia Diagnosis: Mild major depression Comment: Ordered: Office Visit Level 4 Est 78009; 02/20/16 10:36:00 PODIATRIC ASSISTANT, Hypertension | Osteoarthritis of both knees | Fatty liver | Nontoxic multinodular goiter | Mild major depression | Tubular adenoma of colon Diagnosis: Nontoxic multinodular goiter Comment: Ordered: TSH 3rd Generation; Blood, Routine Collect, 02/20/16 10: 46:00 PODIATRIC ASSISTANT, Once, Stop date 02/20/16 10:46:00 PODIATRIC ASSISTANT, Lab Collect, Nontoxic multinodular goiter Office Visit Level 4 Est 94350; 02/20/16 10:36:00 PODIATRIC ASSISTANT, Hypertension | Osteoarthritis of both knees | Fatty liver | Nontoxic multinodular goiter | Mild major depression | Tubular adenoma of colon Diagnosis: Osteoarthritis of both knees Comment: Ordered: Office Visit Level 4 Est 90146; 02/20/16 10:36:00 PODIATRIC ASSISTANT, Hypertension | Osteoarthritis of both knees | Fatty liver | Nontoxic multinodular goiter | Mild major depression | Tubular adenoma of colon Diagnosis: Tubular adenoma of colon Comment: Ordered: Office Visit Level 4 Est 27741; 02/20/16 10:36:00 PODIATRIC ASSISTANT, Hypertension | Osteoarthritis of both knees | Fatty liver | Nontoxic multinodular goiter | Mild major depression | Tubular adenoma of colon Additional Orders: Comment: Ordered: Gibson 5 mg-325 mg oral tablet,1 tabs, Oral, Daily, as needed for severe pain, # 20 tabs, 0 Refill(s) End of Orders ."
--- OUTSIDE RECORDS SUMMARY | 2016-06-14 06:59 | XMS REPORT | Referral Summary ---
Author Organization Unknown Address Unknown Phone Unavailable Care Team Providers Care Commercial Management Accountant Name Role Phone Roxanna Monique Primary Care Physician [phone] Encounter VC Date(s): 05/23/14 - 05/23/14 [address] [facility], [place] [facility] [address] [place] [id number] Discharge Diagnosis: Sprain of medial collateral ligament of left knee Discharge Diagnosis: Osteoarthritis of left knee Discharge Diagnosis: Hypertension Discharge Disposition: Home or Self Care Attending Physician: Jonathan Monique MD Admitting Physician: Jonathan Monique MD Vital Signs Most recent to 1 oldest [Reference Range]: Temperature Tympanic 36.7 degC [36.6-38.1 degC] (05/23/14 1:59 PM) Peripheral Pulse 72 bpm Rate [60-100 bpm] (05/23/14 1:59 PM) Blood Pressure 132/84 mmHg [90-140/60-90 mmHg] (05/23/14 1:59 PM) Problem List Condition Effective Dates Status Health Status Informant Allergic Active rhinitis(Confirmed) Acute Active anxiety(Confirmed) Benign essential Active hypertension(Confirm ed) Cervical disc Active degeneration(Confirm ed) Cervical disc Active herniation(Confirmed ) Cervical Active radiculitis(Confirme d) Cervical spinal Active stenosis(Confirmed) Cervical Active spondylosis(Confirme d) Depression(Confirmed Active ) Hayfever(Confirmed) Active Hypertension(Confirm Active ed) Hypertriglyceridemia Active (Confirmed) Hypokalemia(Confirme Active d) Knee pain(Confirmed) Active Multinodular Active thyroid(Confirmed) Neck pain(Confirmed) Active Obesity(Confirmed) Active Hip Active osteoarthritis(Confi rmed) Osteoarthritis of Active left knee(Confirmed) Overweight(Confirmed Active ) Left knee Active sprain(Confirmed) Sprain of medial Active collateral ligament of left knee(Confirmed) Left leg Active swelling(Confirmed) Heart murmur, Active systolic(Confirmed) Tenderness of left Active calf(Confirmed) Tobacco Active patient user(Confirmed) Tubular adenoma of 2012 Active colon(Confirmed) Uterine Active fibroids(Confirmed) Allergies, Adverse Reactions, Alerts No Known Medication Allergies Medications amLODIPine 10 mg oral tablet 1 tabs, Oral, Daily, 0 Refill(s) Start Date: 05/20/14 Status: Ordered bisoprolol-hydrochlorothiazide 2.5 mg-6.25 mg oral tablet 1 tabs, Oral, Daily, # 90 tabs, 0 Refill(s), Pharmacy: [id number] Start Date: 04/22/14 Status: Ordered ibuprofen 200 mg oral tablet 1 tabs, Oral, TID, as needed for left knee pain, 0 Refill(s) Start Date: 05/20/14 Status: Ordered Klor-Con 10 oral tablet, extended release 1 tabs, Oral, Daily, # 90 tabs, 3 Refill(s), Pharmacy: [facility], 1 tabs Oral Daily,x90 days Start Date: 02/17/14 Stop Date: 02/12/15 Status: Ordered losartan 100 mg oral tablet See Instructions, TAKE 1 TABLET (100MG) BY ORAL ROUTE EVERY MORNING, # 30 tabs, 1 Refill(s), eRx: [id number], TAKE 1 TABLET (100MG) BY ORAL ROUTE EVERY MORNING Special Instructions: TAKE 1 TABLET (100MG) BY ORAL ROUTE EVERY MORNING Start Date: 04/04/14 Status: Ordered Nature's Bounty Red Krill Oil 500 mg oral capsule 1 caps, Oral, Daily, 0 Refill(s) Start Date: 02/17/14 Status: Ordered Morris Run 7.5 mg-325 mg oral tablet 1 tabs, Oral, Bedtime (once a day), # 20 tabs, 0 Refill(s) Start Date: 05/23/14 Stop Date: 06/02/14 Status: Ordered Ocuvite Lutein Oral, Daily, 0 Refill(s) Start Date: 05/20/14 Status: Ordered Tylenol Extra Strength 500 mg [...] ped 08/30/11 diphtheria/pertussis, whole cell/tetanus 03/12/02 hepatitis B adult vaccine 08/30/11 Procedures Procedure Date Related Diagnosis Body Site Colonoscopy 05/01/11 c-scope 2011 [facility] BSO - Total abdominal hysterectomy and 09/2009 bilateral salpingo-oophorectomy Appendectomy 2009 Arthroscopy of RIGHT knee 07/2006 Cholecystectomy 2004 Social History Social History Type Response Smoking Status Former smoker; Type: Cigarettes Assessment and Plan Extracted from: Title: Ambulatory Patient Education Author: Jonathan Monique MD Date: 05/23 Family Medicine Osteoarthritis Osteoarthritis is a disease that causes soreness and swelling (inflammation ) of a joint. It occurs when the [...] age. Excessive body weight. Overuse of joints. SIGNS AND SYMPTOMS Pain, swelling, and stiffness in the joint. Over time, the joint may lose its normal shape. Small deposits of bone (osteophytes ) may grow on the edges of the [...] endings under the skin (transcutaneous electrical nerve stimulation, TENS ). Massage. Certain nutritional supplements. Medicines to control pain, such as: Acetaminophen. Nonsteroidal anti-inflammatory drugs (NSAIDs), such as naproxen. Narcotic or central-acting agents, such as tramadol. Corticosteroids. These can be given orally or as an injection. Surgery to reposition the bones and relieve pain (osteotomy ) or to remove loose pieces of bone and cartilage. Joint replacement may be needed in advanced states of osteoarthritis. HOME CARE INSTRUCTIONS Only take knvn-uwz-qlyrowy or prescription medicines as directed by your health care provider. Take all medicines exactly as instructed. Maintain a healthy weight. Follow your health care provider's instructions for weight control. This may include dietary instructions. Exercise as directed. Your health care provider can recommend specific types of exercise. These may include: Strengthening exercisesThese are done to strengthen the muscles that support joints affected by arthritis. They can be performed with weights or with exercise bands to add resistance. Aerobic activitiesThese are exercises, such as brisk walking or low- impact aerobics, that get your heart pumping. Khaxw-nq-pifdna activitiesThese keep your joints limber. Balance and agility exercisesThese help you maintain daily living skills. Rest your affected joints as directed by your health care provider. Follow up with your health care provider as directed. SEEK MEDICAL CARE IF: Your skin turns red. You develop a rash in addition to your joint pain. You have worsening joint pain. SEEK IMMEDIATE MEDICAL CARE IF: You have a significant loss of weight or appetite. You have a fever along with joint or muscle aches. You have night sweats. FOR MORE INFORMATION [employer] [place] [facility]: www.niams.nih.gov [facility] [place] [facility]: www.prashanth.nih.gov [employer]: www.rheumatology.org Document Released: 01/27/2006 Document Revised: 11/17/2013 Document Reviewed: [facility] Patient Information 2014 [facility], [facility]. Orthopedics Medial Collateral Knee Ligament Sprain with Phase I Rehab The medial collateral ligament (MCL) of the knee helps hold the knee joint in proper alignment and prevents the bones from shifting out of alignment ( displacing ) to the inside (medially ). Injury to the knee may cause a tear in the MCL ligament (sprain ). Sprains may heal without treatment, but this often results in a loose joint. Sprains are classified into three categories. Grade 1 sprains cause pain, but the tendon is not lengthened. Grade 2 sprains include a lengthened ligament, due to the ligament being stretched or partially ruptured. With grade 2 sprains, there is still function, although possibly decreased. Grade 3 sprains involve a complete tear of the tendon or muscle, and function is usually impaired. SYMPTOMS Pain and tenderness on the inner side of the knee. A "pop," tearing or pulling sensation at the time of injury. Bruising (contusion ) at the site of injury, within 48 hours of injury. Knee stiffness. Limping, often walking with the knee bent. CAUSES An MCL sprain occurs when a force is placed on the ligament that is greater than it can handle. Common mechanisms of injury include: Direct hit (trauma ) to the outer side of the knee, especially if the foot is planted on the ground. Forceful pivoting of the body and leg, while the foot is planted on the ground. RISK INCREASES WITH: Contact sports (football, rugby). Sports that require pivoting or cutting (soccer). Poor knee strength and flexibility. Improper equipment use. PREVENTION Warm up and stretch properly before activity. Maintain physical fitness: Strength, flexibility and endurance. Cardiovascular fitness. Wear properly fitted protective equipment (correct length of cleats for surface). Functional braces may be effective in preventing injury. PROGNOSIS MCL tears usually heal without the need for surgery. Sometimes however, surgery is required. RELATED COMPLICATIONS Frequently recurring symptoms, such as the knee giving way, knee instability or knee swelling. Injury to other structures in the knee joint: Meniscal cartilage, resulting in locking and swelling of the knee. Articular cartilage, resulting in knee arthritis. Other ligaments of the knee. Injury to nerves, resulting in numbness of the outer leg, foot or ankle and weakness or paralysis, with inability to raise the ankle or toes. Knee stiffness. TREATMENT Treatment first involves the use of ice and medicine, to reduce pain and inflammation. The use of strengthening and stretching exercises may help reduce pain with activity. These exercises may be performed at home, but referral to a therapist is often advised. You may be advised to walk with crutches until you are able to walk without a limp. Your caregiver may provide you with a hinged knee brace to help regain a full range of motion, while also protecting the injured knee. For severe MCL injuries or injuries that involve other ligaments of the knee, surgery is often advised. MEDICATION Do not take pain medicine for 7 days before surgery. Only use onhd-eca-tblueiz pain medicine as directed by your caregiver. Only use prescription pain relievers as directed and only in needed amounts. HEAT AND COLD Cold treatment (icing ) should be applied for 10 to 15 minutes every 2 to 3 hours for inflammation and pain, and immediately after any activity, that aggravates the symptoms. Use ice packs or an ice massage. Heat treatment may be used before performing stretching and strengthening activities prescribed by your caregiver, physical therapist or computer technology trainer. Use a heat pack or warm water soak. SEEK MEDICAL CARE IF: Symptoms get worse or do not improve in 4 to 6 weeks, despite treatment. New, unexplained symptoms develop. EXERCISES PHASE I EXERCISES RANGE OF MOTION (ROM) AND STRETCHING EXERCISESMedial Collateral Knee Ligament Sprain Phase I These are some of the initial exercises that your physician, physical therapist or computer technology trainer may have you perform to begin your rehabilitation. When you demonstrate gains in your flexibility and strength, your caregiver may progress you to Phase II exercises. As you perform these exercises, remember: These initial exercises are intended to be gentle. They will help you restore motion without increasing any swelling. Completing these exercises allows less painful movement and prepares you for the more aggressive strengthening exercises in Phase II. An effective stretch should be held for at least 30 seconds. A stretch should never be painful. You should only feel a gentle lengthening or release in the stretched tissue. RANGE OF MOTIONKnee Flexion, Active Lie on your back with both knees straight. (If this causes back discomfort , bend your healthy knee, placing your foot flat on the floor.) Slowly slide your heel back toward your buttocks until you feel a gentle stretch in the front of your knee or thigh. Hold for seconds. Slowly slide your heel back to the starting position. Repeat times. Complete this exercise times per day. STRETCHKnee Flexion, Supine Lie on the floor with your right / left heel and foot lightly touching the wall. (Place both feet on the wall if you do not use a door frame.) Without using any effort, allow gravity to slide your foot down the wall slowly until you feel a gentle stretch in the front of your right / left knee. Hold this stretch for seconds. Then return the leg to the starting position, using your health leg for help, if needed. Repeat times. Complete this stretch times per day. RANGE OF MOTIONKnee Flexion and Extension, Active-Assisted Sit on the edge of a table or chair with your thighs firmly supported. It may be helpful to place a folded towel under the end of your right / left thigh. Flexion (bending ): Place the ankle of your healthy leg on top of the other ankle. Use your healthy leg to gently bend your right / left knee until you feel a mild tension across the top of your knee. Hold for seconds. Extension (straightening ): Switch your ankles so your right / left leg is on top. Use your healthy leg to straighten your right / left knee until you feel a mild tension on the backside of your knee. Hold for seconds. Repeat times. Complete this exercise times per day. STRETCHKnee Extension Sitting Sit with your right / left leg/heel propped on another chair, coffee table , or foot stool. Allow your leg muscles to relax, letting gravity straighten out your knee. * You should feel a stretch behind your right / left knee. Hold this position for seconds. Repeat times. Complete this stretch times per day. *Your physician, physical therapist or computer technology trainer may instruct you to place a weight on your thigh, just above your kneecap, to deepen the stretch. STRENGTHENING EXERCISESMedial Collateral Knee Ligament Sprain Phase I These exercises may help you when beginning to rehabilitate your injury. They may resolve your symptoms with or without further involvement from your physician, physical therapist or computer technology trainer. While completing these exercises, remember: In order to return to more demanding activities, you will likely need to progress to more challenging exercises. Your physician, physical therapist or computer technology trainer will advance your exercises when your tissues show adequate healing and your muscles demonstrate increased strength. Muscles can gain both the endurance and the strength needed for everyday activities through controlled exercises. Complete these exercises as instructed by your physician, physical therapist or computer technology trainer. Increase the resistance and repetitions only as guided by your caregiver. STRENGTHQuadriceps, Isometrics Lie on your back with your right / left leg extended and your opposite knee bent. Gradually tense the muscles in the front of your right / left thigh. You should see either your kneecap slide up toward your hip or an increased dimpling just above the knee. This motion will push the back of the knee down toward the floor, mat or bed on which you are lying. Hold the muscle as tight as you can without increasing your pain for ____ seconds. Relax the muscles slowly and completely in between each repetition. Repeat times. Complete this exercise times per day. STRENGTHQuadriceps, Short Arcs Lie on your back. Place a inch towel roll under your knee so that the knee slightly bends. Raise only your lower leg by tightening the muscles in the front of your thigh. Do not allow your thigh to rise. Hold this position for seconds. Repeat times. Complete this exercise times per day. OPTIONAL ANKLE WEIGHTS: Begin with , but DO NOT exceed . Increase in 1 pound/0.5 kilogram increments. STRENGTH-Quadriceps, Straight Leg Raises Quality counts! Watch for signs that the quadriceps muscle is working, to be sure you are strengthening the correct muscles and not "cheating" by substituting with healthier muscles. Lay on your back with your right / left leg extended and your opposite knee bent. Tense the muscles in the front of your right / left thigh. You should see either your knee cap slide up or increased dimpling just above the knee. Your thigh may even shake a bit. Tighten these muscles even more and raise your leg 4 to 6 inches off the floor. Hold for seconds. Keeping these muscles tense, lower your leg. Relax the muscles slowly and completely in between each repetition. Repeat times. Complete this exercise times per day. STRENGTHHamstring, Isometrics Lie on your back on a firm surface. Bend your right / left knee approximately degrees. Dig your heel into the surface as if you are trying to pull it toward your buttocks. Tighten the muscles in the back of your thighs to "dig" as hard as you can, without increasing any pain. Hold this position for seconds. Release the tension gradually and allow your muscle to completely relax for seconds in between each exercise. Repeat times. Complete this exercise times per day. STRENGTHHamstring, Curls Lay on your stomach with your legs extended. (If you lay on a bed, your feet may hang over the edge.) Tighten the muscles in the back of your thigh to bend your right / left knee up to 90 degrees. Keep your hips flat on the bed. Hold this position for seconds. Slowly lower your leg back to the starting position. Repeat times. Complete this exercise times per day. OPTIONAL ANKLE WEIGHTS: Begin with , but DO NOT exceed . Increase in 1 pound/0.5 kilogram increments. Document Released: 01/27/2006 Document Revised: 04/20/2012 Document Reviewed: [facility] Patient Information 2014 [employer] [facility]. No follow up information was provided. Extracted from: Title: left knee sprain Author: Jonathan Monique MD Date: 05/23/14 Impression and Plan Diagnosis Hypertension (ICD9 401.9, Discharge, Medical). Osteoarthritis of left knee (ICD9 715.96, Discharge, Medical). Sprain of medial collateral ligament of left knee (ICD9 844.1, Discharge, Medical). Plan: Wear your knee brace all the time. Limit walking to as tolerated. No squatting or kneeling on that left knee. May take Morris Run at bedtime. Ice the knee as needed. Followup with me as needed. See Dr. Monroy.. Orders Orders (Selected) Outpatient Orders Ordered Office Visit Level 5 Est 93286: Discontinued Office Visit Level 4 Est 29776: Prescriptions Prescribed Morris Run 7.5 mg-325 mg oral tablet: 1 tabs, Oral, Bedtime (once a day), 20 tabs. Dx/Order Association Plan: Diagnosis: Hypertension Comment: Modified: Office Visit Level 5 Est [id number]; 05/23/14 15:53:00 CDT, Sprain of medial collateral ligament of left knee | Osteoarthritis of left knee | Hypertension Diagnosis: Osteoarthritis of left knee Comment: Modified: Office Visit Level 5 Est [id number]; 05/23/14 15:53:00 CDT, Sprain of medial collateral ligament of left knee | Osteoarthritis of left knee | Hypertension Discontinued: Office Visit Level 4 Est [id number]; 05/23/14 14:28:00 CDT, Sprain of medial collateral ligament of left knee | Osteoarthritis of left knee Diagnosis: Sprain of medial collateral ligament of left knee Comment: Modified: Office Visit Level 5 Est [id number]; 05/23/14 15:53:00 CDT, Sprain of medial collateral ligament of left knee | Osteoarthritis of left knee | Hypertension Discontinued: Office Visit Level 4 Est [id number]; 05/23/14 14:28:00 CDT, Sprain of medial collateral ligament of left knee | Osteoarthritis of left knee Additional Orders: Comment: Ordered: Morris Run 7.5 mg-325 mg oral tablet,1 tabs, Oral, Bedtime ( once a day), # 20 tabs, 0 Refill(s) End of Orders .
--- OUTSIDE RECORDS SUMMARY | 2016-06-14 06:59 | XMS REPORT | Referral Summary ---
Author Author [facility], Family Medicine Organization [facility] Address Unknown Phone Unavailable Care Team Providers Care Ladle Operator Name Role Phone Roxanna Monique Primary Care Physician [phone] Encounter Date(s): 06/23/14 - 06/23/14 [facility] [address] [place] [phone] Discharge Diagnosis: Pre-operative respiratory examination Discharge Diagnosis: Examination of, laboratory Discharge Diagnosis: Encounter for pre-operative cardiovascular clearance Discharge Disposition: 01-Home or Self Care Attending Physician: Jonathan Monique MD Admitting Physician: Jonathan Monique MD Referring Physician: Familia Monroy MD Vital Signs Most recent to 1 oldest [Reference Range]: Temperature Tympanic 37.1 degC [36.6-38.1 degC] (06/23/14 2:14 PM) Peripheral Pulse 72 bpm Rate [60-100 bpm] (06/23/14 2:14 PM) Blood Pressure 124/72 mmHg [90-140/60-90 mmHg] (06/23/14 2:14 PM) Problem List Condition Effective Dates Status [...] # 18 g, 1 Refill(s), Pharmacy : [facility] [id number] Start Date: 12/26/14 Status: Ordered amLODIPine 10 mg oral tablet 1 tabs, Oral, Daily, # 90 tabs, 3 Refill(s), Pharmacy: [facility] [id number], 1 tabs Oral Daily,x90 days Start Date: 06/20/14 Stop Date: 06/15/15 Status: Ordered amoxicillin-clavulanate 875 mg-125 mg oral tablet 1 tabs, Oral, q12hr, X 10 days, # 20 tabs, 0 Refill(s), Pharmacy: [facility] [id number] Start Date: 12/26/14 Stop Date: 01/05/15 Status: Ordered bisoprolol-hydrochlorothiazide 2.5 mg-6.25 mg oral tablet 2 tabs, Oral, Daily, # 180 tabs, 3 Refill(s), Pharmacy: [facility] [id number] Start Date: 06/20/14 Stop Date: 06/15/15 Status: Ordered Klor-Con 10 oral tablet, extended release 1 tabs, Oral, Daily, # 90 tabs, 3 Refill(s), Pharmacy: [facility] [id number], 1 tabs Oral Daily,x90 days Start Date: 06/20/14 Stop Date: 06/15/15 Status: Ordered losartan 100 mg oral tablet 1 tabs, Oral, Daily, X 90 days, # 90 tabs, 3 Refill(s), Pharmacy: [facility] [id number], 1 tabs Oral Daily,x90 days Start Date: [...] Daily Start Date: 10/20/13 Status: Ordered Results Hematology Most recent to 1 oldest [Reference Range]: WBC [4.8-10.8 6.8 10*3/uL 10*3/uL] (06/23/14 2:50 PM) RBC [4.00-5.20 4.46 10*6/uL 10*6/uL] (06/23/14 2:50 PM) Hgb [12.0-16.0 13.5 gm/dL gm/dL] (06/23/14 2:50 PM) Hct [37.0-47.0 %] 40.1 % (06/23/14 2:50 PM) MCV [82.0-99.0 fL] 89.9 fL (06/23/14 2:50 PM) MCH [27.0-32.0 pg] 30.3 pg (06/23/14 2:50 PM) MCHC [32.0-36.0 33.7 gm/dL gm/dL] (06/23/14 2:50 PM) RDW [11.5-14.5 %] 12.8 % (06/23/14 2:50 PM) Platelet [150-400 295 10*3/uL 10*3/uL] (06/23/14 2:50 PM) MPV [8.8-14.8 fL] 9.6 fL (06/23/14 2:50 PM) Immature 0.1 % Granulocytes (06/23/14 2:50 PM) [0.0-1.0 %] Neutrophils [51-75 48 % %] *LOW* (06/23/14 2:50 PM) Lymphocytes [20-46 41 % %] (06/23/14 2:50 PM) Monocytes [4-11 %] 9 % (06/23/14 2:50 PM) Eosinophils [0-4 %] 1 % (06/23/14 2:50 PM) Basophils [0-2 %] 0 % (06/23/14 2:50 PM) Neutro Absolute 3.27 10*3 [1.90-7.00 10*3] (06/23/14 2:50 PM) Lymph Absolute 2.79 10*3 [0.80-3.30 10*3] (06/23/14 2:50 PM) [place] Absolute 0.63 10*3 [0.30-1.00 10*3] (06/23/14 2:50 PM) Eos Absolute 0.09 10*3 [0.00-0.50 10*3] (06/23/14 2:50 PM) Baso Absolute 0.02 10*3 [0.00-0.20 10*3] (06/23/14 2:50 PM) Chemistry Most recent to 1 oldest [Reference Range]: Sodium Lvl [135-144 142 mEq/L mEq/L] (06/23/14 2:50 PM) Potassium Lvl 3.8 mEq/L [3.5-5.2 mEq/L] (06/23/14 2:50 PM) Chloride [99-111 104 mEq/L mEq/L] (06/23/14 2:50 PM) CO2 [22-31 mEq/L] 29 mEq/L (06/23/14 2:50 PM) AGAP [3-20] 9 (06/23/14 2:50 PM) BUN [10-20 mg/dL] 19 mg/dL (06/23/14 2:50 PM) Glucose Lvl [70-99 87 mg/dL mg/dL] (06/23/14 2:50 PM) Creatinine Lvl 0.85 mg/dL [0.57-1.11 mg/dL] (06/23/14 2:50 PM) eGFR [>60 mL/min] >60 mL/min 1 (06/23/14 2:50 PM) Calcium Lvl 9.8 mg/dL [8.9-10.5 mg/dL] (06/23/14 2:50 PM) 1Result Comment: Multiply eGFR results by 1.21 for race. Immunizations Vaccine Date Refusal Reason diphtheria/pertussis, acel/tetanus ped 08/30/11 diphtheria/pertussis, whole cell/tetanus 03/12/02 hepatitis A adult vaccine 08/03/14 hepatitis B adult vaccine 08/30/11 Procedures Procedure Date Related Diagnosis Body Site Arthroscopy and biopsy of knee1 07/11/14 Collection of venous blood by venipuncture 06/23/14 Colonoscopy 05/01/11 c-scope 2011 [facility] - Total abdominal hysterectomy and 09/2009 bilateral salpingo-oophorectomy Appendectomy 2009 Arthroscopy of RIGHT knee 07/2006 Cholecystectomy 2004 1left knee meiscectomy and debridement Social History Social History Type Response Smoking Status Former smoker; Type: Cigarettes1 1quit smoking in 1999 Assessment and Plan Extracted from: Title: Ambulatory Patient Education Author: Jonathan Monique MD Date: 06/23 Family Medicine Knee Sprain A knee sprain is a tear in one of the strong, fibrous tissues that connect the bones (ligaments ) in your knee. The severity of the sprain depends on how much of the ligament is torn. The tear can be either partial or complete. CAUSES Often, sprains are a result of a fall or injury. The force of the impact causes the fibers of your ligament to stretch too much. This excess tension causes the fibers of your ligament to tear. SIGNS AND SYMPTOMS You may have some loss of motion in your knee. Other symptoms include: Bruising. Pain in the knee area. Tenderness of the knee to the touch. Swelling. DIAGNOSIS To diagnose a knee sprain, your health care provider will physically examine your knee. Your health care provider may also suggest an X-ray exam of your knee to make sure no bones are broken. TREATMENT If your ligament is only partially torn, treatment usually involves keeping the knee in a fixed position (immobilization ) or bracing your knee for activities that require movement for several weeks. To do this, your health care provider will apply a bandage, cast, or splint to keep your knee from moving and to support your knee during movement until it heals. For a partially torn ligament , the healing process usually takes 46 weeks. If your ligament is completely torn, depending on which ligament it is, you may need surgery to reconnect the ligament to the bone or reconstruct it. After surgery, a cast or splint may be applied and will need to stay on your knee for 46 weeks while your ligament heals. HOME CARE INSTRUCTIONS Keep your injured knee elevated to decrease swelling. To ease pain and swelling, apply ice to the injured area: Put ice in a plastic bag. Place a towel between your skin and the bag. Leave the ice on for 20 minutes, 23 times a day. Only take medicine for pain as directed by your health care provider. Do not leave your knee unprotected until pain and stiffness go away ( usually 46 weeks). If you have a cast or splint, do not allow it to get wet. If you have been instructed not to remove it, cover it with a plastic bag when you shower or bathe. Do not swim. Your health care provider may suggest exercises for you to do during your recovery to prevent or limit permanent weakness and stiffness. SEEK IMMEDIATE MEDICAL CARE IF: Your cast or splint becomes damaged. Your pain becomes worse. You have significant pain, swelling, or numbness below the cast or splint. MAKE SURE YOU: Understand these instructions. Will watch your condition. Will get help right away if you are not doing well or get worse. Document Released: 01/27/2006 Document Revised: 11/17/2013 Document Reviewed: [facility] Patient Information 2014 [employer]. Meniscus Tear with Phase I Rehab The meniscus is a C-shaped cartilage structure, located in the knee joint between the thigh bone (femur ) and the shinbone (tibia ). Two menisci are located in each knee joint: the inner and outer meniscus. The meniscus acts as an adapter between the thigh bone and shinbone, allowing them to fit properly together. It also functions as a shock absorber, to reduce the stress placed on the knee joint and to help supply nutrients to the knee joint cartilage. As people age, the meniscus begins to harden and become more vulnerable to injury. Meniscus tears are a common injury, especially in older athletes. Inner meniscus tears are more common than outer meniscus tears. SYMPTOMS Pain in the knee, especially with standing or squatting with the affected leg. Tenderness along the joint line. Swelling in the knee joint (effusion ), usually starting 1 to 2 days after injury. Locking or catching of the knee joint, causing inability to straighten the knee completely. Giving way or buckling of the knee. CAUSES A meniscus tear occurs when a force is placed on the meniscus that is greater than it can handle. Common causes of injury include: Direct hit (trauma ) to the knee. Twisting, pivoting, or cutting (rapidly changing direction while running), kneeling or squatting. Without injury, due to aging. RISK INCREASES WITH: Contact sports (football, rugby). Sports in which cleats are used with pivoting (soccer, lacrosse) or sports in which good shoe spice blender and sudden change in direction are required (racquetball , basketball, squash). Previous knee injury. Associated knee injury, particularly ligament injuries. Poor strength and flexibility. PREVENTION Warm up and stretch properly before activity. Maintain physical fitness: Strength, flexibility, and endurance. Cardiovascular fitness. Protect the knee with a brace or elastic bandage. Wear properly fitted protective equipment (proper cleats for the surface). PROGNOSIS Sometimes, meniscus tears heal on their own. However, definitive treatment requires surgery, followed by at least 6 weeks of recovery. RELATED COMPLICATIONS Recurring symptoms that result in a chronic problem. Repeated knee injury, especially if sports are resumed too soon after injury or surgery. Progression of the tear (the tear gets larger), if untreated. Arthritis of the knee in later years (with or without surgery). Complications of surgery, including infection, bleeding, injury to nerves ( numbness, weakness, paralysis) continued pain, giving way, locking, nonhealing of meniscus (if repaired), need for further surgery, and knee stiffness (loss of motion). TREATMENT Treatment first involves the use of ice and medicine, to reduce pain and inflammation. You may find using crutches to walk more comfortable. However, it is okay to bear weight on the injured knee, if the pain will allow it. Surgery is often advised as a definitive treatment. Surgery is performed through an incision near the joint (arthroscopically ). The torn piece of the meniscus is removed, and if possible the joint cartilage is repaired. After surgery, the joint must be restrained. After restraint, it is important to perform strengthening and stretching exercises to help regain strength and a full range of motion. These exercises may be completed at home or with a therapist. MEDICATION If pain medicine is needed, nonsteroidal anti-inflammatory medicines ( aspirin and ibuprofen), or other minor pain relievers (acetaminophen), are often advised. Do not take pain medicine for 7 days before surgery. Prescription pain relievers may be given, if your caregiver thinks they are needed. Use only as directed and only as much as you need. HEAT AND COLD Cold treatment (icing ) should be applied for 10 to 15 minutes every 2 to 3 hours for inflammation and pain, and immediately after activity that aggravates your symptoms. Use ice packs or an ice massage. Heat treatment may be used before performing stretching and strengthening activities prescribed by your caregiver, physical therapist, or director of intercollegiate athletics. Use a heat pack or a warm water soak. SEEK MEDICAL CARE IF: Symptoms get worse or do not improve in 2 weeks, despite treatment. New, unexplained symptoms develop. (Drugs used in treatment may produce side effects .) EXERCISES RANGE OF MOTION (ROM) AND STRETCHING EXERCISES - Meniscus Tear, Non-operative, Phase I These are some of the initial exercises with which you may start your rehabilitation program, until you see your caregiver again or until your symptoms are resolved. Remember: These initial exercises are intended to be [...] release in the stretched tissue. RANGE OF MOTION - Knee Flexion, Active Lie on your back with [...] times. Complete this exercise times per day. RANGE OF MOTION - Knee Flexion and Extension, Active-Assisted Sit on the edge of a table or chair with your thighs firmly supported. It may be helpful to place a folded towel under the end of your right / left thigh. Flexion (bending) : Place the ankle of your healthy leg on top of the other ankle. Use your healthy leg to gently bend your right / left knee until you feel a mild tension across the top of your knee. Hold for seconds. Extension (straightening) : Switch your ankles so your right / left leg is on top. Use your healthy leg to straighten your right / left knee until you feel a mild tension on the backside of your knee. Hold for seconds. Repeat times. Complete times per day. STRETCH - Knee Flexion, Supine Lie on the floor with [...] leg to the starting position, using your healthy leg for help, if needed. Repeat times. Complete this stretch times per day. STRETCH - Knee Extension Sitting Sit with your right / left leg/heel propped on another chair, coffee table , or foot stool. Allow your leg muscles to relax, letting gravity straighten out your knee. * You should feel a stretch behind your right / left knee. Hold this position for seconds. Repeat times. Complete this stretch times per day. *Your physician, physical therapist or director of intercollegiate athletics may instruct you place a weight on your thigh, just above your kneecap, to deepen the stretch. STRENGTHENING EXERCISES - Meniscus Tear, Non-operative, Phase I These exercises may help you when beginning to rehabilitate your injury. They may resolve your symptoms with or without further involvement from your physician, physical therapist or director of intercollegiate athletics. While completing these exercises, remember: Muscles can gain both the endurance and the strength needed for everyday activities through controlled exercises. Complete these exercises as instructed by your physician, physical therapist or director of intercollegiate athletics. Progress the resistance and repetitions only as guided. STRENGTH - Quadriceps, Isometrics Lie on your back with your right / left leg extended and your opposite knee bent. Gradually tense the muscles in the front of your right / left thigh. You should see either your knee cap slide up toward your hip or increased dimpling just above the knee. This motion will push the back of the knee down toward the floor, mat, or bed on which you are lying. Hold the muscle as tight as you can, without increasing your pain, for ____ seconds. Relax the muscles slowly and completely between each repetition. Repeat times. Complete this exercise times per day. STRENGTH - Quadriceps, Short Arcs Lie on your back. Place a inch towel roll under your right / left knee, so that the knee bends slightly. Raise only your lower leg by tightening the muscles in the front of your thigh. Do not allow your thigh to rise. Hold this position for seconds. Repeat times. Complete this exercise times per day. OPTIONAL ANKLE WEIGHTS: Begin with , but DO NOT exceed . Increase in 1 pound/0.5 kilogram increments. STRENGTH - Quadriceps, Straight Leg Raises Quality counts! Watch for [...] times. Complete this exercise times per day. STRENGTH - Hamstring, Curls Lay on your stomach with your [...] times. Complete this exercise times per day. STRENGTH Quadriceps, Squats hoisting engineer a door frame so that your feet and knees are in line with the frame. Use your hands for balance, not support, on the frame. Slowly lower your weight, bending at the hips and knees. Keep your lower legs upright so that they are parallel with the door frame. Squat only within the range that does not increase your knee pain. Never let your hips drop below your knees. Slowly return upright, pushing with your legs, not pulling with your hands. Repeat times. Complete this exercise times per day. STRENGTH - Quad/VMO, Isometric Sit in a chair with your right / left knee slightly bent. With your fingertips, feel the VMO muscle just above the inside of your knee. The VMO is important in controlling the position of your kneecap. Keeping your fingertips on this muscle. Without actually moving your leg, attempt to drive your knee down as if straightening your leg. You should feel your VMO tense. If you have a difficult time, you may wish to try the same exercise on your healthy knee first. Tense this muscle as hard as you can without increasing any knee pain. Hold for seconds. Relax the muscles slowly and completely in between each repetition. Repeat times. Complete exercise times per day. Document Released: 02/10/1999 Document Revised: 04/20/2012 Document Reviewed: [facility] Patient Information 2014 [facility]. Orthopedics Medial Collateral Knee Ligament Sprain [...] for 7 days before surgery. Only use [id number] pain medicine as directed by your caregiver. [...] prescribed by your caregiver, physical therapist or director of intercollegiate athletics. Use a heat pack or warm water soak. SEEK MEDICAL CARE IF: Symptoms get worse or do not improve in 4 to 6 weeks, despite treatment. New, unexplained symptoms develop. EXERCISES PHASE I EXERCISES RANGE OF MOTION (ROM) AND STRETCHING EXERCISESMedial Collateral Knee Ligament Sprain Phase I These are some of the initial exercises that your physician, physical therapist or director of intercollegiate athletics may have you perform to begin your [...] per day. *Your physician, physical therapist or director of intercollegiate athletics may instruct you to place a weight on your thigh, just above your kneecap, to deepen the stretch. STRENGTHENING EXERCISESMedial Collateral Knee Ligament Sprain Phase I These exercises may help you when beginning to rehabilitate your injury. They may resolve your symptoms with or without further involvement from your physician, physical therapist or director of intercollegiate athletics. While completing these exercises, remember: In order to return to more demanding activities, you will likely need to progress to more challenging exercises. Your physician, physical therapist or director of intercollegiate athletics will advance your exercises when your tissues show adequate healing and your muscles demonstrate increased strength. Muscles can gain both the endurance and the strength needed for everyday activities through controlled exercises. Complete these exercises as instructed by your physician, physical therapist or director of intercollegiate athletics. Increase the resistance and repetitions only as [...] Released: 01/27/2006 Document Revised: 04/20/2012 Document Reviewed: [employer] Patient Information 2014 [employer]. No follow up information was provided. Extracted from: Title: left knee sprain, HTN Author: Jonathan Monique MD Date: 06/23/14 Impression and Plan Diagnosis Acute torn meniscus (ICD9 836.2, Working, Medical). Benign essential hypertension (ICD9 401.1, Working, Medical). Encounter for pre-operative cardiovascular clearance (ICD9 V72.81, Discharge, Medical). Examination of, laboratory (ICD9 V72.60, Discharge, Medical). Osteoarthritis of left knee (ICD9 715.96, Working, Medical). Pre-operative respiratory examination (ICD9 V72.82, Discharge, Medical). Sprain of medial collateral ligament of left knee (ICD9 844.1, Working, Medical) . Plan: Your BP is currently well controlled. Your ECG shows no worrisome changes. Your chest xray is normal. Your pre-op lab is pending. You are cleared for left knee surgery. You are a class II anesthesia risk, due to hypertension, along with family history of CAD and your personal history of previous smoking. I recommend that you take your BP meds the morning of surgery , with a sip of water, or at least late the night before. No change to your routine meds at this time. Avoid ibuprofen and Aleve.. Orders Orders (Selected) Outpatient Orders Ordered BMP: CBC w/ Differential: Electrocardiogram, Routine Ecg With At Least 12 Leads; Interpretation And Report Only [id number]: Office Visit Level 4 Est 15145: Completed Chest XR 2 Views: . Dx/Order Association Plan: Diagnosis: Acute torn meniscus Comment: Ordered: Office Visit Level 4 Est [id number]; 06/23/14 15:15:00 CDT, Sprain of medial collateral ligament of left knee | Acute torn meniscus | Osteoarthritis of left knee | Benign essential hypertension | Encounter for pre- operative cardiovascular clearance Diagnosis: Benign essential hypertension Comment: Ordered: Office Visit Level 4 Est [id number]; 06/23/14 15:15:00 CDT, Sprain of medial collateral ligament of left knee | Acute torn meniscus | Osteoarthritis of left knee | Benign essential hypertension | Encounter for pre- operative cardiovascular clearance Diagnosis: Encounter for pre-operative cardiovascular clearance Comment: Ordered: Office Visit Level 4 Est [id number]; 06/23/14 15:15:00 CDT, Sprain of medial collateral ligament of left knee | Acute torn meniscus | Osteoarthritis of left knee | Benign essential hypertension | Encounter for pre- operative cardiovascular clearance Diagnosis: Examination of, laboratory Comment: Ordered: Office Visit Level 4 Est [id number]; 06/23/14 15:15:00 CDT, Sprain of medial collateral ligament of left knee | Acute torn meniscus | Osteoarthritis of left knee | Benign essential hypertension | Encounter for pre- operative cardiovascular clearance Diagnosis: Osteoarthritis of left knee Comment: Ordered: Office Visit Level 4 Est [id number]; 06/23/14 15:15:00 CDT, Sprain of medial collateral ligament of left knee | Acute torn meniscus | Osteoarthritis of left knee | Benign essential hypertension | Encounter for pre- operative cardiovascular clearance Diagnosis: Pre-operative respiratory examination Comment: Ordered: Office Visit Level 4 Est [id number]; 06/23/14 15:15:00 CDT, Sprain of medial collateral ligament of left knee | Acute torn meniscus | Osteoarthritis of left knee | Benign essential hypertension | Encounter for pre- operative cardiovascular clearance Diagnosis: Sprain of medial collateral ligament of left knee Comment: Ordered: Office Visit Level 4 Est [id number]; 06/23/14 15:15:00 CDT, Sprain of medial collateral ligament of left knee | Acute torn meniscus | Osteoarthritis of left knee | Benign essential hypertension | Encounter for pre- operative cardiovascular clearance End of Orders . Referrals to Other Providers left knee sprain, torn meniscus, referred to: Familia Monroy MD Referred by: Jonathan Monique MD
--- OUTSIDE RECORDS SUMMARY | 2016-06-14 06:59 | XMS REPORT | Referral Summary ---
Author Author [facility], Family Medicine Organization [facility] Address Unknown Phone Unavailable Care Team Providers Care [employer] Supervisor Name Role Phone Roxanna Monique Primary Care Physician [phone] Encounter VC Date(s): 08/03/14 - 08/03/14 [facility], [address] [place] [phone]- Discharge Disposition: 01-Home or Self Care Attending Physician: Jonathan Monique MD Admitting Physician: Jonathan Monique MD Vital Signs Most recent to 1 oldest [Reference Range]: Temperature Tympanic 36.2 degC [36.6-38.1 degC] *LOW* (08/03/14 9:01 AM) Peripheral Pulse 60 bpm Rate [60-100 bpm] (08/03/14 9:01 AM) Respiratory Rate 16 br/min [14-20 br/min] (08/03/14 9:01 AM) Blood Pressure 118/78 mmHg [90-140/60-90 mmHg] (08/03/14 9:01 AM) SpO2 99 % (08/03/14 9:01 AM) Problem List Condition Effective Dates Status [...] # 18 g, 1 Refill(s), Pharmacy : [id number] Start Date: 12/26/14 Status: Ordered amLODIPine 10 mg oral tablet 1 tabs, Oral, Daily, # 90 tabs, 3 Refill(s), Pharmacy: [id number], 1 tabs Oral Daily,x90 days Start Date: 06/20/14 Stop Date: 06/15/15 Status: Ordered bisoprolol-hydrochlorothiazide 2.5 mg-6.25 mg oral tablet 2 tabs, Oral, Daily, # 180 tabs, 3 Refill(s), Pharmacy: [id number] Start Date: 01/30/15 Stop Date: 01/25/16 Status: Ordered Climara 0.0375 mg/24 hours weekly transdermal film, extended release 1 patches, Topical, q7day, # 13 patches, 0 Refill(s), Pharmacy: [id number] Start Date: 02/08/15 Status: Ordered Klor-Con 10 oral tablet, extended release 1 tabs, Oral, Daily, # 90 tabs, 3 Refill(s), Pharmacy: [id number], 1 tabs Oral Daily,x90 days Start Date: 06/20/14 Stop Date: 06/15/15 Status: Ordered losartan 100 mg oral tablet 1 tabs, Oral, Daily, X 90 days, # 90 tabs, 3 Refill(s), Pharmacy: [email or web address] [id number], 1 tabs Oral Daily,x90 days Start Date: [...] Most recent to 1 oldest [Reference Range]: TSH [0.35-4.94] 0.78 (08/03/14 10:10 AM) Immunizations Vaccine Date Refusal Reason diphtheria/pertussis, acel/tetanus ped 08/30/11 diphtheria/pertussis, whole cell/tetanus 03/12/02 hepatitis A adult vaccine 01/30/15 hepatitis A adult vaccine 08/03/14 hepatitis B adult vaccine 08/30/11 Procedures Procedure Date Related Diagnosis Body Site Collection of venous blood by venipuncture 08/03/14 Arthroscopy and biopsy of knee1 07/11/14 Colonoscopy 05/01/11 c-scope 2011 [facility] BSO - Total abdominal hysterectomy and 09/2009 bilateral salpingo-oophorectomy Appendectomy 2009 Arthroscopy of RIGHT knee 07/2006 Cholecystectomy 2004 1left knee meiscectomy and debridement Social History Social History Type Response Smoking Status Former smoker; Type: Cigarettes1 1quit smoking in 1999 Assessment and Plan Extracted from: Title: Ambulatory Patient Education Author: Jonathan Monique MD Date: 08/03 Family Medicine Health Maintenance, Female A healthy lifestyle and preventative care can promote health and wellness. Maintain regular health, dental, and eye exams. Eat a healthy diet. Foods like vegetables, fruits, whole grains, low-fat dairy products, and lean protein foods contain the nutrients you need without too many calories. Decrease your intake of foods high in solid fats, added sugars, and salt. Get information about a proper diet from your caregiver, if necessary. Regular physical exercise is one of the most important things you can do for your health. Most adults should get at least 150 minutes of moderate- intensity exercise (any activity that increases your heart rate and causes you to sweat) each week. In addition, most adults need muscle-strengthening exercises on 2 or more days a week. Maintain a healthy weight. The body mass index (BMI) is a screening tool to identify possible weight problems. It provides an estimate of body fat based on height and weight. Your caregiver can help determine your BMI, and can help you achieve or maintain a healthy weight. For adults 20 years and older: A BMI below 18.5 is considered underweight. A BMI of 18.5 to 24.9 is normal. A BMI of 25 to 29.9 is considered overweight. A BMI of 30 and above is considered obese. Maintain normal blood lipids and cholesterol by exercising and minimizing your intake of saturated fat. Eat a balanced diet with plenty of fruits and vegetables. Blood tests for lipids and cholesterol should begin at age 20 and be repeated every 5 years. If your lipid or cholesterol levels are high, you are over 50, or you are a high risk for heart disease, you may need your cholesterol levels checked more frequently.Ongoing high lipid and cholesterol levels should be treated with medicines if diet and exercise are not effective. If you smoke, find out from your caregiver how to quit. If you do not use tobacco, do not start. Lung cancer screening is recommended for adults aged 5580 years who are at high risk for developing lung cancer because of a history of smoking. Yearly low-dose computed tomography (CT) is recommended for people who have at least a [id number] history of smoking and are a current smoker or have quit within the past 15 years. A pack year of smoking is smoking an average of 1 pack of cigarettes a day for 1 year (for example: 1 pack a day for 30 years or 2 packs a day for 15 years). Yearly screening should continue until the smoker has stopped smoking for at least 15 years. Yearly screening should also be stopped for people who develop a health problem that would prevent them from having lung cancer treatment. If you are , do not drink alcohol. If you are , be very cautious about drinking alcohol. If you are not and choose to drink alcohol, do not exceed 1 drink per day. One drink is considered to be 12 ounces (355 mL) of beer, 5 ounces (148 mL) of wine, or 1.5 ounces (44 mL) of liquor. Avoid use of street drugs. Do not share needles with anyone. Ask for help if you need support or instructions about stopping the use of drugs. High blood pressure causes heart disease and increases the risk of stroke. Blood pressure should be checked at least every 1 to 2 years. Ongoing high blood pressure should be treated with medicines, if weight loss and exercise are not effective. If you are 55 to 79 years old, ask your caregiver if you should take aspirin to prevent strokes. Diabetes screening involves taking a blood sample to check your fasting blood sugar level. This should be done once every 3 years, after age 45, if you are within normal weight and without risk factors for diabetes. Testing should be considered at a younger age or be carried out more frequently if you are overweight and have at least 1 risk factor for diabetes. Breast cancer screening is essential preventative care for women. You should practice "breast self-awareness." This means understanding the normal appearance and feel of your breasts and may include breast self-examination. Any changes detected, no matter how small, should be reported to a caregiver. Women in their 20s and 30s should have a clinical breast exam (CBE) by a caregiver as part of a regular health exam every 1 to 3 years. After age 40, women should have a CBE every year. Starting at age 40, women should consider having a mammogram (breast X-ray ) every year. Women who have a family history of breast cancer should talk to their caregiver about genetic screening. Women at a high risk of breast cancer should talk to their caregiver about having an MRI and a mammogram every year. Breast cancer gene (BRCA )-related cancer risk assessment is recommended for women who have family members with BRCA -related cancers. BRCA -related cancers include breast, ovarian, tubal, and peritoneal cancers. Having family members with these cancers may be associated with an increased risk for harmful changes (mutations ) in the breast cancer genes BRCA1 and BRCA2 . Results of the assessment will determine the need for genetic counseling and BRCA1 and BRCA2 testing. The Pap test is a screening test for cervical cancer. Women should have a Pap test starting at age 21. Between ages 21 and 29, Pap tests should be repeated every 2 years. Beginning at age 30, you should have a Pap test every 3 years as long as the past 3 Pap tests have been normal. If you had a hysterectomy for a problem that was not cancer or a condition that could lead to cancer, then you no longer need Pap tests. If you are between ages 65 and 70 , and you have had normal Pap tests going back 10 years, you no longer need Pap tests. If you have had past treatment for cervical cancer or a condition that could lead to cancer, you need Pap tests and screening for cancer for at least 20 years after your treatment. If Pap tests have been discontinued, risk factors (such as a new sexual partner) need to be reassessed to determine if screening should be resumed. Some women have medical problems that increase the chance of getting cervical cancer. In these cases, your caregiver may recommend more frequent screening and Pap tests. The human papillomavirus (HPV) test is an additional test that may be used for cervical cancer screening. The HPV test looks for the virus that can cause the cell changes on the cervix. The cells collected during the Pap test can be tested for HPV. The HPV test could be used to screen women aged 30 years and older, and should be used in women of any age who have unclear Pap test results. After the age of 30, women should have HPV testing at the same frequency as a Pap test. Colorectal cancer can be detected and often prevented. Most routine colorectal cancer screening begins at the age of 50 and continues through age 75. However, your caregiver may recommend screening at an earlier age if you have risk factors for colon cancer. On a yearly basis, your caregiver may provide home test kits to check for hidden blood in the stool. Use of a small camera at the end of a tube, to directly examine the colon (sigmoidoscopy or colonoscopy ), can detect the earliest forms of colorectal cancer. Talk to your caregiver about this at age 50, when routine screening begins. Direct examination of the colon should be repeated every 5 to 10 years through age 75, unless early forms of pre-cancerous polyps or small growths are found. Hepatitis C blood testing is recommended for all people born from 1945 through 1965 and any individual with known risks for hepatitis C. Practice safe sex. Use condoms and avoid high-risk sexual practices to reduce the spread of sexually transmitted infections (STIs). Sexually active women aged 25 and younger should be checked for Chlamydia, which is a common sexually transmitted infection. Older women with new or multiple partners should also be tested for Chlamydia. Testing for other STIs is recommended if you are sexually active and at increased risk. Osteoporosis is a disease in which the bones lose minerals and strength with aging. This can result in serious bone fractures. The risk of osteoporosis can be identified using a bone density scan. Women ages 65 and over and women at risk for fractures or osteoporosis should discuss screening with their caregivers. Ask your caregiver whether you should be taking a calcium supplement or vitamin D to reduce the rate of osteoporosis. Menopause can be associated with physical symptoms and risks. Hormone replacement therapy is available to decrease symptoms and risks. You should talk to your caregiver about whether hormone replacement therapy is right for you. Use sunscreen. Apply sunscreen liberally and repeatedly throughout the day. You should seek shade when your shadow is shorter than you. Protect yourself by wearing long sleeves, pants, a wide-brimmed hat, and sunglasses year round, whenever you are outdoors. Notify your caregiver of new moles or changes in moles, especially if there is a change in shape or color. Also notify your caregiver if a mole is larger than the size of a pencil eraser. Stay current with your immunizations. Document Released: 08/12/2011 Document Revised: 05/24/2013 Document Reviewed: [facility] Patient Information 2014 [facility]. No follow up information was provided. Extracted from: Title: Female Physical Author: Jonathan Monique MD Date: 08/03/14 Impression and Plan Diagnosis Hypertension (ICD9 401.9, Working, Medical). Multinodular thyroid (ICD9 241.1, Working, Medical). Need for hepatitis A vaccination (ICD9 V05.3, Working, Medical). Well adult exam (ICD9 V70.0, Working, Medical). Plan: Hepatitis A vaccine #1 today. Get the 2nd one after 6 months. See me in 6 months and as needed. Continue healthy diet and daily exercise. Continue your routine meds. , You refused the thyroid sono. You are due for a mammogram sometime in the next year, prior to March of 2016., TSH today. . Orders Orders (Selected) Outpatient Orders Ordered Periodic Comp Preventive Med 40 to 64 years Est 10507: hepatitis A adult vaccine 1440 units/mL preservative free intramuscular suspension: 1 mL, IntraMuscular, Once Future (On Hold) TSH 3rd Generation: . Dx/Order Association Plan: Diagnosis: Hypertension Comment: Ordered: Periodic Comp Preventive Med 40 to 64 years Est 59057; 9:43:00 CDT, Well adult exam | Hypertension | Multinodular thyroid | Need for hepatitis A vaccination Diagnosis: Multinodular thyroid Comment: Ordered: Periodic Comp Preventive Med 40 to 64 years Est 27702; 9:43:00 CDT, Well adult exam | Hypertension | Multinodular thyroid | Need for hepatitis A vaccination Diagnosis: Need for hepatitis A vaccination Comment: Ordered: hepatitis A adult vaccine 1440 units/mL preservative free intramuscular suspension; 1 mL, IntraMuscular, Once, First Dose: 08/03/14 10:00:00 CDT, Stop Date: 08/03/14 10:00:00 CDT, Form: Vial Periodic Comp Preventive Med 40 to 64 years Est 04198; 08/03/14 9:43:00 CDT, Well adult exam | Hypertension | Multinodular thyroid | Need for hepatitis A vaccination Diagnosis: Well adult exam Comment: Ordered: hepatitis A adult vaccine 1440 units/mL preservative free intramuscular suspension; 1 mL, IntraMuscular, Once, First Dose: 08/03/14 10:00:00 CDT, Stop Date: 08/03/14 10:00:00 CDT, Form: Vial Periodic Comp Preventive Med 40 to 64 years Est [id number]; 08/03/14 9:43:00 CDT, Well adult exam | Hypertension | Multinodular thyroid | Need for hepatitis A vaccination Additional Orders: Comment: Ordered: Ocuvite PreserVision,1 tabs, Oral, Daily, 0 Refill(s) Future Orders: TSH 3rd Generation,Blood, Routine Collect, 08/03/14 , Once, Lab Collect, Multinodular thyroid, Order for future visit Ordered: traMADol 50 mg oral tablet,25 mg 0.5 tabs, Oral, BID, for knee pain, 0 Refill(s) End of Orders .
[2016-06-14] MEDS ORDERED: LIDOCAINE 1% (10mg/ml) 2ml SDV INJ ONE (07:00)
[2016-06-14] MEDS ORDERED: LR 1,000 ML IV SCH (07:00)
--- OUTSIDE RECORDS SUMMARY | 2016-06-14 07:00 | XMS REPORT | Continuity of Care Document ---
Author Author [facility] Organization [facility] Address Unknown Phone Unavailable Allergies Medications Problems Procedures Results Encounters ACCT No. Visit Date/Time Discharge Status Pt. Type Provider Facility Loc./Unit Complaint [id number] 04/29/2013 15:31:00 04/29/2013 23 :59:59 CLS Outpatient [id number] 04/01/2013 08:33:00 04/01/2013 23 :59:59 CLS Outpatient [id number] 02/26/2013 07:26:00 02/26/2013 23 :59:59 CLS Outpatient
[2016-06-14 07:16] VITALS: BP 169/89; PULSE 66; RESP 16; TEMP 98.3; O2SAT 97; Ht 162.6 cm; Wt 98.0 kg
--- NOTE | 2016-06-14 07:43 | ANESPREOP ---
Anesthesia Record Date and Time DATE: 06/14/16 TIME: 07:40 Pre-Op Diagnosis personal history of polys Proposed Surgical Procedure COLONOSCOPY NPO since: mn Allergies: Coded Allergies: No Known Drug Allergies (Verified Allergy, Unknown, 06/14/16) Ht/Wt/BMI Height: 5 ' 4.00 " Weight: 98.000 kg BMI: 37.1 kg/m2 Vital Signs Date Time Temp Pulse Resp B/P Pulse Ox O2 Delivery O2 Flow Rate FiO2 06/14/16 07:16 98.3 66 16 169/89 97 Room Air Medications Inpatient Medications Current Medications Medications (Trade) Dose Ordered Sig/Mg Start Time Stop Time Status Last Admin Dose Admin Lactated Ringer's (Lactated Ringers) 1,000 ml @ 30 mls/hr Q24H 06/14/16 07:00 Acetaminophen (Tylenol Extra Strength) 500 Mg Tablet, 1-2 TAB PO Q6H PRN for PAIN, (Reported) Last Taken: on 06/13/16 1800 Amlodipine Besylate (Amlodipine Besylate) 5 Mg Tablet, 5 MG PO DAILY, (Reported) Last Taken: on 06/14/16 0630 Ascorbic Acid (Vitamin C) 1,000 Mg Tablet, 1 TAB PO DAILY, (Reported) Last Taken: on 06/02/16 Bisoprolol Fumarate/Hctz (Bisoprolol-Hctz 2.5-6.25 mg Tb) 1 Each Tablet, 1 TAB PO DAILY, (Reported) Last Taken: on 06/14/16 0630 Bupropion HCl (Bupropion Xl) 150 Mg Tab.er.24h, 1 TAB PO BID, (Reported) Last Taken: on 06/14/16 0630 Cholecalciferol (Vitamin D3) (Vitamin D-3) 2, 000 Unit Capsule, 1 CAP PO DAILY, (Reported) Last Taken: on 06/02/16 Hydrocodone/Acetaminophen ([place]pton 5-325 Tablet) 1 Each Tablet, 1-2 TAB PO Q4-6H PRN for PAIN Losartan Potassium (Losartan Potassium) 100 Mg Tablet, 100 MG PO DAILY, ( Reported) Last Taken: on 06/14/16 0630 Meloxicam (Mobic) 15 Mg Tablet, 1 TAB PO DAILY Ondansetron HCl (Zofran) 4 Mg Tablet, 4 MG PO Q6H Potassium Chloride (Potassium Chloride) 10 Meq Tablet.er, 1 TAB PO DAILY, ( Reported) Last Taken: on 06/13/16 1200 Ubidecarenone (Coq-10) 100 Mg Capsule, 200 MG PO DAILY, (Reported) Vit C/Vit E/Lutein/Min/Climax-3 (Ocuvite Softgel) 1 Each Capsule, 1 CAP PO DAILY, (Reported) Last Taken: on 06/02/16 Vitamin B Complex (Vitamin B Complex) 1 Cap Capsule , 1 CAP PO, (Reported) Last Taken: on 06/02/16 Currently on Beta Marcello: No Medical/Surgical History Anesthesia PMH: Reports: *Hypertension (per h&p), Anesthesia Reactions ( DIFFICULT INTUBATION X1, INTUBATED FOR HYST SINCE THEN), Arthritis (OA per h&p) , Depression, Denies: *Angina, *MA, CHF, Cancer, Deep Vein Thrombosis, Glaucoma , Hepatitis, Hiatal Hernia, Malignant Hyperthermia, Reflux, Rheumatic Fever Smoking Status: Former smoker (quit 1999 ) Substance Use Type: does not use Past Surgical History Orthopedic Surgeries: No - ARTHROSCOPY- PENELOPE. KNEE PER H&P Abdominal Surgeries: Yes - APPY, ABD. HYST., GALLBLADDER PER H&P Genitourinary Surgeries: Cardiac Surgeries: Endocrine Surgeries: Reproductive Surgeries: Yes - TOTAL ABD. HYST. PER H&P Neurological Surgeries: Ear Surgeries: Nose Surgeries: Throat Surgeries: Other Surgeries: Yes - colonoscopy x2 per h&p Anesthesia Adverse Reactions: FOUND none, FOUND other (difficult intubation ) Family Hx of Anesthesia Advers: none Pertinent Findings EKG Rhythm: Sinus Rhythm Physical Exam Respiratory: Bilat breath sounds equal, Lungs clear Cardiovascular: FOUND Regular rate, rhythm, FOUND Extra beats Airway Assessment Mallampati Score: II TMD: 3 Fingerbreadths Neck Extension: Good Overall Assessment: May Be Diff Intubation ASA: 2 Plan Anesthesia Plan: TIVA Discussion Discussed risks/options/alternatives of anesthesia and questions answered. Patient consents. Nursing pain assessment noted. Attestation Statement Prior to the delivery of any anesthetic medication, I examined the patient, developed the plan, obtained the patient's consent and discussed the risk and benefits of the procedure with the patient/guardian. CASTRO AZAR CRNA June 14, 2016 07:43
[2016-06-14] MEDS ORDERED: PROPOFOL 500mg 50 ML IV ONE (08:51)
[2016-06-14] MEDS ORDERED: LIDOCAINE 2% (20mg/ml) 5ml PF SDV ONE (08:51)
[2016-06-14] MEDS ORDERED: FENTANYL 100mcg/2ml INJECTION ONE (08:56)
[2016-06-14 09:25] VITALS: BP 114/80; PULSE 63; RESP 12; TEMP 96.9; O2SAT 95
[2016-06-14 09:40] VITALS: BP_SYST 109; BP_SYST 141; BP_DIAS 61; BP_DIAS 65; PULSE 60; PULSE 64; RESP 16; RESP 18; O2SAT 98; O2SAT 99
--- NOTE | 2016-06-14 09:45 | ANESPO ---
Post-Op Note Date 06/14/16 Time: 09:45 Status Pt Participated in Evaluation: Pt participated in person Vital Signs Date Time Temp Pulse Resp B/P Pulse Ox O2 Delivery O2 Flow Rate FiO2 06/14/16 09:40 60 16 141/65 99 Room Air 06/14/16 09:25 96.9 Mental Status: Alert/oriented Pain Level Intensity: 0 Hydration: IV infusing Complications during Recovery None apparent Follow-Up Instructions Instructions Per Surgeon CASTRO AZAR CRNA June 14, 2016 09:45
--- NOTE | 2016-06-14 15:00 | OPNOTEF ---
DATE OF SERVICE 06/14/2016 SURGEON Caden Quiroz MD PREOPERATIVE DIAGNOSIS Personal history of adenomatous colon polyps. POSTOPERATIVE DIAGNOSIS Personal history of adenomatous colon polyps, colonic polyp x2 at 50 cm from the anal verge, colonic polyp x1 within the distal transverse colon. PROCEDURE Colonoscopy with polypectomies via cold biopsy technique x2 at 50 cm from the anal verge, snare polypectomy x1 at the distal transverse colon. ANESTHESIA TIVA BRIEF HISTORY/INDICATIONS Mrs. Shields is a 61-year-old female who has a personal history of adenomatous colon polyps. It has been more than five years since her last endoscopic evaluation. Patient presents to undergo colonoscopy. For completeness please refer to notes included in the patient's chart. FINDINGS Upon colonoscopy, I did not appreciate any evidence for angiodysplastic lesions, diverticula or carmelita malignancies. The patient was found to have two diminutive appearing colonic polyps at 50 cm from the anal verge that were on the order of about 5-6 mm in diameter and removed in their entirety via cold biopsy technique. The patient was found to have a sessile polyp upon a haustral fold that was on the order of about 8 mm in diameter which was removed in its entirety via snare polypectomy technique. This polyp was located just beyond the splenic flexure involving the distal transverse colon. DESCRIPTION OF PROCEDURE After informed consent was obtained, the patient was brought to the endoscopy suite and placed on the table in left lateral decubitus position. The patient subsequently underwent total intravenous anesthesia by the nurse e tailer per my request. A formal time-out was then completed. Next, a digital rectal examination was performed. Normal sphincter tone. No rectal masses were appreciated. An Olympus colonoscope was inserted in the anus and advanced through the lumen of the colon under direct visualization at all times until the cecum was ascertained. Triangulation of the teniae coli, ileocecal valve and appendiceal lumen were all visualized. The scope was then slowly withdrawn, again while maintaining visualization of the lumen at all times. As the scope was being slowly withdrawn, a polyp involving the distal transverse colon as discussed above was identified. A snare was placed around the polyp and the polyp was transected and suctioned into a colonic trap and submitted for pathologic evaluation. Colonoscope was then continued to be slowly withdrawn where two additional/synchronous polyps were also identified at 50 cm from the anal verge, that were on the order of about 5-6 mm in diameter. These polyps were removed in their entirety via cold biopsy technique and placed within a separate container. Colonoscope was then continued to be withdrawn until it was brought forth back into the rectal vault. A J-maneuver was then performed. No worrisome perianal pathology was noted. Scope was allowed to straighten and withdrawn through the anal verge. The entire colon was without evidence for angiodysplastic lesions, diverticula or carmelita malignancies. We will await the biopsy results from today's polypectomies and will proceed accordingly with further recommendations thereafter. NAUN
== END 2016-06-14 09:15 | disposition home or self-care (01) ==
LOC: NSC 06:55
PROVIDERS: ATTEND Surgery
DX: Z12.11 Encounter for screening for malignant neoplasm of colon (principal); K63.5 Polyp of colon; Z86.010 Personal history of colon polyps; I10 Essential (primary) hypertension; E78.1 Pure hyperglyceridemia; E66.9 Obesity, unspecified; Z68.37 Body mass index [BMI] 37.0-37.9, adult; F32.0 Major depressive disorder, single episode, mild; J30.1 Allergic rhinitis due to pollen; E04.2 Nontoxic multinodular goiter; K76.0 Fatty (change of) liver, not elsewhere classified; M17.0 Bilateral primary osteoarthritis of knee; Z79.890 Hormone replacement therapy; Z79.899 Other long term (current) drug therapy; Z87.891 Personal history of nicotine dependence
CPT/HCPCS: 45380; 45385; J2704; J3010; J7120